=== PATIENT | male | born 1965 | race Caucasian/White ===

== ENCOUNTER 2023-08-22 11:53 | Outpatient (RCR) | payer BC, SELFPAY | END 2023-08-22 23:59 | disposition home or self-care (01) | LOC: ROT 11:53 | PROVIDERS: ATTENDING PHYSICIAN Physical Medicine & Rehabilitation; FAMILY PHYSICIAN Family Medicine | DX: G93.6 Cerebral edema (principal); Z73.6 Limitation of activities due to disability; C71.9 Malignant neoplasm of brain, unspecified; G81.92 Hemiplegia, unspecified affecting left dominant side | CPT/HCPCS: 97110; 97112; 97116; 97140; 97530; 97535 ==

== ENCOUNTER 2023-09-06 09:56 | Outpatient (RCR) | payer BC, SELFPAY | END 2023-09-06 23:59 | disposition home or self-care (01) | LOC: ROT 09:56 | PROVIDERS: ATTENDING PHYSICIAN Physical Medicine & Rehabilitation; FAMILY PHYSICIAN Family Medicine | DX: G93.6 Cerebral edema (principal); C71.9 Malignant neoplasm of brain, unspecified; G81.92 Hemiplegia, unspecified affecting left dominant side; Z73.6 Limitation of activities due to disability | CPT/HCPCS: 97110; 97116; 97140; 97530 ==

== ENCOUNTER → 2023-09-30 08:35 | Outpatient (REF) | payer BC, SELFPAY ==
[2023-09-30 09:31] LABS: % Basophils 0.4 % (0-2); % Eosinophils 0.2 % (0-6); % Immature Granulocytes 0.4 % (0-0.5); % Lymphocytes 10.7 % (20.5-51.1); % Monocytes 6.9 % (1.7-9.3); % Neutrophils 81.4 % (42.2-75.2); Absolute Lymphocytes 0.6 10^3/uL (1.2-3.4); Absolute Monocytes 0.4 10^3/uL (0.1-0.6); Absolute Neutrophils 4.3 10^3/uL (1.4-6.5); Hematocrit 38.2 % (39.0-52.0); Hemoglobin 13.8 g/dL (13.0-18.0); Mean Corp Hgb Conc. 36.1 g/dL (33.0-37.0); Mean Corpuscular Hgb 36.7 pg (27.0-31.0); Mean Corpuscular Volume 101.6 fL (80.0-94.0); Nucleated Red Blood Cells % 0 % (-); Red Blood Cell Count 3.76 10^6/uL (4.70-6.10); Red Cell Dist. Width 13.2 % (11.5-14.5); White Blood Cell Count 5.2 10^3/uL (4.8-10.8)
[2023-09-30 09:59] LABS: ALT (SGPT) 75 U/L (0-50); AST (SGOT) 76 U/L (17-59); Albumin 4.4 g/dl (3.5-5.0); Alkaline Phosphatase 39 U/L (38-126); Blood Urea Nitrogen 24 mg/dl (9-20); Calcium 10.2 mg/dl (8.4-10.2); Carbon Dioxide 34 mmol/L (22-30); Chloride 91 mmol/L (98-107); Glucose 124 mg/dl (70-99); Potassium 2.8 mmol/L (3.5-5.1); Sodium 136 mmol/L (135-145); Total Bilirubin 1.4 mg/dl (0.2-1.3); Total Protein 7.6 g/dl (6.3-8.2); eGFR > 60.00
[2023-09-30 11:00] LABS: Mean Platelet Volume 9.1 fL (7.4-10.4); Platelet Count 92 10^3/uL (130-400)
== END ==
LOC: REG 08:35
PROVIDERS: ATTENDING PHYSICIAN Internal Medicine Hematology & Oncology; FAMILY PHYSICIAN Physician Assistant Medical
DX: C71.9 Malignant neoplasm of brain, unspecified (principal)
CPT/HCPCS: 36415; 80053; 85025

== ENCOUNTER 2023-10-07 00:15 | Inpatient (IN) | payer BC, SELFPAY ==
[2023-10-06 20:23] VITALS: BP 135/92; BMI 28.8
[2023-10-06 20:26] VITALS: BP 135/92
[2023-10-06 20:38] LABS: % Basophils 0.4 % (0-2); % Immature Granulocytes 0.4 % (0-0.5); % Lymphocytes 27.5 % (20.5-51.1); % Monocytes 17.5 % (1.7-9.3); % Neutrophils 54.2 % (42.2-75.2); Absolute Lymphocytes 0.7 10^3/uL (1.2-3.4); Absolute Monocytes 0.4 10^3/uL (0.1-0.6); Absolute Neutrophils 1.4 10^3/uL (1.4-6.5); Hematocrit 32.1 % (39.0-52.0); Hemoglobin 11.9 g/dL (13.0-18.0); Mean Corp Hgb Conc. 37.1 g/dL (33.0-37.0); Mean Corpuscular Hgb 36.8 pg (27.0-31.0); Mean Corpuscular Volume 99.4 fL (80.0-94.0); Mean Platelet Volume 9.4 fL (7.4-10.4); Nucleated Red Blood Cells % 0 % (-); Platelet Count 86 10^3/uL (130-400); Red Blood Cell Count 3.23 10^6/uL (4.70-6.10); Red Cell Dist. Width 12.7 % (11.5-14.5); White Blood Cell Count 2.5 10^3/uL (4.8-10.8)
[2023-10-06 20:57] LABS: Alcohol None Detected
[2023-10-06 20:58] LABS: ALT (SGPT) 147 U/L (0-50); AST (SGOT) 95 U/L (17-59); Alkaline Phosphatase 45 U/L (38-126); Blood Urea Nitrogen 7 mg/dl (9-20); Calcium 8.9 mg/dl (8.4-10.2); Carbon Dioxide 21 mmol/L (22-30); Chloride 103 mmol/L (98-107); Estimated Creatinine Clearance 95 ml/min; Glucose 94 mg/dl (70-99); Potassium 3.7 mmol/L (3.5-5.1); Sodium 134 mmol/L (135-145); Total Bilirubin 0.9 mg/dl (0.2-1.3); Total Protein 6.5 g/dl (6.3-8.2); eGFR > 60.00
[2023-10-06] MEDS: ATIVAN 1 MG IV (21:01)
[2023-10-06 21:03] VITALS: BP 117/92
[2023-10-06 22:00] VITALS: BP 131/82
--- NOTE | 2023-10-06 22:30 | ED.GENMED ---
History of Present Illness
General
Chief Complaint: Seizure
Source: patient and ambulance crew
Exam Limitations: none
Time Seen by Provider: 10/06/23 20:38
Travel History
Have you had any contact with someone who has COVID-19?: No
Do you have any symptoms of coronavirus? Fever > 100 degrees, chills, cough, shortness of breath, sore throat, loss of taste or smell, muscle aches, or headache?: No
History of Present Illness
History of Present Illness:
this is a 57yo male with a hx of brain tumor who presents with seizure activity to the [facility]. he states that he has been also more fatigued and weak. he is on keppra and vimpat. he has had radiation and chemo. he states he had an MR of the brain about
a week ago that he was told showed no significant change in his mass. No fevers. No shortness of breath.
Past History
Past History
ED Past Medical History: Cancer (Brain) and HTN
ED Past Surgical History: Brain
Social History
Tobacco: Non-smoker
Alcohol: Daily
Drug: None
Personal:
Living: with family
Family History
Family History: Other (reviewed and noncontributory)
Phy Exam
Physical Exam
Physical Exam:
CONSTITUTIONAL Patient alert and oriented to person, place and time. Well-appearing. Vital signs reviewed.
HEAD atraumatic, normocephalic.
EYES eyelids normal to inspection, Pupils equally round and reactive to light, Extraocular muscles intact, Conjunctiva normal, Sclera normal.
NECK normal range of motion, Trachea midline, no jugular venous distention.
RESPIRATORY CHEST No respiratory distress noted, Chest expansion equal, Bilateral breath sounds clear.
CARDIOVASCULAR regular rate and rhythm, Heart sounds normal.
ABDOMEN abdomen nontender, Bowel sounds normal. No distention.
BACK normal inspection, no obvious deformities
UPPER EXTREMITY no cyanosis, no edema.
LOWER EXTREMITY no cyanosis, no edema.
NEURO Speech normal, Arnold coma scale 15, Memory normal, Cranial Nerves intact to screening exam. Left upper extremity and left lower extremity weakness. During exam it was noted that he had a focal seizure of the left upper extremity.
SKIN skin warm, dry, and normal in color.
PSYCHIATRIC patient oriented to person place and time, Normal affect.
Course
Orders/Labs/Results
Orders:
Orders
10/06/23 20:31
Alcohol Urgent
CMP [Comprehensive Metabolic Panel] Urgent
Complete Blood Count/With Diff Urgent
10/06/23 20:58
CT Head W/o Iv Contrast Stat
Comment:
Reason For Exam: seizure, h/o brain tumor and resection
Lorazepam [Ativan] 1 mg IV NOW STA
10/07/23 00:14
Lacosamide [Vimpat] 200 mg PO NOW STA
Levetiracetam [Keppra] 1,500 mg PO NOW STA
Abnormal Lab Results
10/06/23
20:31
WBC 2.5 L 10^3/uL
(4.8-10.8)
RBC 3.23 L 10^6/uL
(4.70-6.10)
Hgb 11.9 L g/dL
(13.0-18.0)
Hct 32.1 L %
(39.0-52.0)
MCV 99.4 H fL
(80.0-94.0)
MCH 36.8 H pg
(27.0-31.0)
MCHC 37.1 H g/dL
(33.0-37.0)
Plt Count 86 L 10^3/uL
(130-400)
Absolute Lymphs (auto) 0.7 L 10^3/uL
(1.2-3.4)
Monocytes % 17.5 H %
(1.7-9.3)
Sodium 134 L mmol/L
(135-145)
Carbon Dioxide 21 L mmol/L
(22-30)
BUN 7 L mg/dl
(9-20)
AST 95 H U/L
(17-59)
ALT 147 H U/L
(0-50)
10/06/23 20:31
10/06/23 20:31
Vital Signs
Initial and Last Documented VS:
Initial Vital Signs
Temp Pulse Resp BP Pulse Ox
98.4 F 108 16 135/92 94
10/06/23 20:23 10/06/23 20:23 10/06/23 20:23 10/06/23 20:23 10/06/23 20:23
Last Documented Vital Signs
Temp Pulse Resp BP Pulse Ox
97.7 F 72 16 133/88 95
10/07/23 01:32 10/07/23 01:25 10/07/23 01:00 10/07/23 01:00 10/07/23 01:00
MDM/Problems Addressed
MDM/Problems Addressed:
Focal seizures, brain tumor
*Radiology
Radiology exam reviewed: radiology read reviewed
*Pulse Oximetry
Patient hypoxic: no
*Supervisor Yard Interpretation
Rate: normal
Interpretation: normal
Rhythm: sinus
*Critical Care Note
Total Time (30-74mins, 75-104mins- exclusive of procedures): 30 minutes
Data Reviewed
Review of Other/Old Records Reveals: Progress Notes (Prior progress notes from 06/23)
Source: patient
Prescriptions/Medications Considered But Not Given:
Considered additional Keppra but hold off and will discuss with neurology
Patient Management
Discussion with other providers: Lead Technologist [employer] (oncology at [facility])
Escalation/DeEscalation of care consider admission/obs:
57-year-old male with a history of brain tumor presents with focal seizures. Now stable after IV Ativan. Also does have a history of alcoholism. Patient in the past has been intimate related seizures. Patient admits he has been progressively
more weak. CT shows concern for growth of tumor. Case was discussed with oncology at [facility]. He was accepted by Dr. Rhodes. However, no beds available. In light of his history, admit and monitor closely. [employer] [facility]
[employer] would like updates if his seizures were to progress
ED Attending Note
-
Portions of this chart may have been created with voice recognition software.� Occasional wrong word or��sound alike� substitutions may have occurred due to the inherent limitations of voice recognition software.
Discharge Plan
Departure
Patient Disposition: Admit
Date of Disposition: 10/06/23
Time of Disposition: 22:57
Admit to: Telemetry
Presentation/result/management discussed w/ accepting MD/DO: Hospitalist
Discharge Problem:
Focal seizure, Brain mass
Interventions
Interventions:
*Risk Screen - Suicide Last Done: 10/07/23 01:28
*General Assessment Last Done: 10/06/23 20:23
*Neglect/Abuse Screening Last Done: 10/07/23 01:26
ED- Fall Risk Assessment Last Done: 10/07/23 01:26
*ED COVID-19 Vaccine History Last Done: 10/07/23 01:28
*Nursing Disposition Last Done: 10/07/23 01:26
ED- Cardiac Assessment Last Done: 10/06/23 20:44
ED- Neurological Assessment Last Done: 10/06/23 20:44
ED- Pulmonary Assessment Last Done: 10/06/23 20:44
Discharge Date and Time
Discharge Date/Time: 10/07/23 01:26
[2023-10-07] VITALS (13 sets, daily range): BP systolic 124–162; BP diastolic 87–108; BMI 27.9; BMI 28.4
[2023-10-07] MEDS: VIMPAT 200 MG PO ×3 (00:25→19:47)
[2023-10-07] MEDS: KEPPRA 1500 MG PO ×3 (00:28→19:47)
--- NOTE | 2023-10-07 00:28 | HPS.HSE ---
Family Physician
-
Family Physician: Shanice Motley
Chief Complaint
-
Seizure
History of Present Illness
Patient is a 57y M with PMH significant for seizure disorder and astrocytoma who presents to ED complaining of tremulous activity of the L arm and leg this evening. Patient states that symptoms started while he was sitting and watching
television. He had yet to take his evening AEDs (and has still not taken them). He noted shaking of the L arm > leg and activated his LifeAlert. He was brought to the ED for further evaluation.
Patient was given Ativan IV in the ED and his symptoms resolved.
Patient states that the still has some residual 'heaviness' in the arm and leg. He has baseline L weakness following his initial brain surgery / tumor excision - but current symptoms are more severe.
He notes that the L sided tremulousness and weakness are consistent with his prior seizure activity.
His last seizure was in 05/2023.
He is followed at [facility] by Dr. Cramer for his astrocytoma.
Medical History
Past Medical History
Past Medical History: Reports Other
Additional Past Medical History:
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
Seizure Disorder
Hypertension
Depression
Past Surgical History: Reports Other
Additional Past Surgical History:
Right Frontal Craniotomy / Tumor Excision (08/2021)
Inguinal Herniorrhaphies
Social History
Tobacco: Non-smoker
Alcohol: Chronic Alcoholic (History of alcohol use in excess. He states that his last drink was about one week ago.)
Drug: None
Family History
Family History: Not pertinent
Allergies / Home Medications
Allergies reflects when Allergies were last updated in [facility].
Home Medications with original date entered in [facility]
Allergy/Medication List:
Allergies
Allergy/AdvReac Type Severity Reaction Status Date / Time
oxycodone [From Percocet] Allergy Itching/MATT Verified 08/02/23 12:28
SEA
Home Medications
escitalopram oxalate 10 mg tablet 10 mg PO DAILY Mental Health/Anxiety 11/04/16
hydrochlorothiazide 25 mg tablet 25 mg PO DAILY Blood pressure 11/04/16
yjaealt-vqwijqdvdmqvd-ftxyqcud 250 mg-250 mg-65 mg tablet (Excedrin Migraine) 2 tab PO Q6H PRN headache 05/30/23
cabergoline 0.5 mg tablet 0.25 mg PO TUFR Endocrine disorder 05/30/23
lomustine 100 mg capsule (Gleostine) 100 mg PO Q3W Neurological Condition 05/30/23
ondansetron HCl 4 mg tablet 4 mg PO Q8HPRN PRN nausea/vomiting 05/30/23
pantoprazole 40 mg tablet,delayed release 40 mg PO DAILY Gastrointestinal Issue 05/30/23
polyethylene glycol 3350 17 gram oral powder packet (Miralax) 17 g PO DAILY PRN constipation 05/30/23
procarbazine 50 mg capsule (Matulane) 50 mg PO . DIRECTED Neurological Condition 05/30/23
amlodipine 5 mg tablet 10 mg PO QPM #90 tabs 06/15/23
dexamethasone 2 mg tablet 2 mg PO DAILY Anti-Inflammatory #30 tabs 06/15/23
lacosamide 200 mg tablet 200 mg PO BID #60 tabs 06/15/23
potassium chloride 20 mEq oral packet (Klor-Con) 40 meq PO DAILY #90 ea 06/15/23
acetaminophen 325 mg tablet 650 mg PO Q6HPRN PRN mild pain 10/06/23
levetiracetam 750 mg tablet 1,500 mg PO BID 10/06/23
lisinopril 40 mg tablet 60 mg PO DAILY 10/06/23
Review of Systems
-
History Source: Patient
A 12 point ROS was completed and negative except as noted: Yes
Constitutional: Reports Fatigue; Denies Fever or Chills
Respiratory: Denies Cough or Trouble Breathing
Cardiac: Denies Chest Pain or Palpitations
Abdomen/GI: Denies Abdominal Pain, Nausea, Vomiting or Diarrhea
: Denies Dysuria or Frequency
Musculoskeletal: Denies Joint Pain or Edema
Neurological: Reports Weakness and Other (Tremulousness); Denies Dizzy or Headache
Psych: Denies Depression or Anxiety
Physical Exam
Vital Signs
Vital Signs
Temp Pulse Resp BP Pulse Ox
98.4 F 75 17 131/82 96
10/06/23 20:23 10/06/23 23:45 10/06/23 23:45 10/06/23 22:00 10/06/23 22:15
Physical Exam
General: Other (57y M in no acute distress.)
HEENT: Moist mucous membranes and PERRLA
Respiratory: Clear; No Wheezes, Rales or Rhonchi
Cardiac: S1/S2 and Regular Rhythm; No Murmur
GI: Soft, Non Tender, Non Distended and Normal Bowel Sounds
Musculoskeletal: No Clubbing, No Cyanosis and No Edema
Neuro: AO x 3 and Other (L sided weakness compared to the R (chronic). No active seizure activity.)
Psych: No Agitated or Anxious
Laboratory Results
-
10/06/23 20:31
10/06/23 20:31
Laboratory Results
Total Bilirubin 0.9 mg/dl (0.2-1.3) 10/06/23 20:31
AST 95 U/L (17-59) H 10/06/23 20:31
ALT 147 U/L (0-50) H 10/06/23 20:31
Alkaline Phosphatase 45 U/L (38-126) 10/06/23 20:31
Impression/Plan
-
A/P: Patient is a 57y M with PMH significant for R frontal astrocytoma and seizure disorder who presents to ED with recurrent seizure activity.
Seizure Activity
- Admit for further evaluation and treatment.
- Symptoms improved with IV Ativan in the ED.
- Will give usual nighttime doses of Keppra / Vimpat now and continue BID.
- Monitor for any further seizure activity and treat as needed.
- Neurology evaluation for additional recommendations.
- Patient has been accepted in transfer to [facility]; however, there is no current be availability.
Right Frontal Astrocytoma
- CT done in the ED this evening suggests progression (compared to prior imaging here 05/2023).
- Patient is on current therapy including procarbazine, lomustine and dexamethasone.
- Will continue dexamethasone for now.
- Pending transfer to [facility] once bed is available.
- Follow for changes in neurologic exam, recurrent seizures, etc.
Benign Hypertension
- Stable. Continue outpatient medications with holding parameters.
DVT Prophylaxis: SCDs
Code Status: Full
[2023-10-07 04:27] LABS: Hematocrit 30.5 % (39.0-52.0); Hemoglobin 11.1 g/dL (13.0-18.0); Mean Corp Hgb Conc. 36.4 g/dL (33.0-37.0); Mean Corpuscular Hgb 37.1 pg (27.0-31.0); Mean Platelet Volume 9.3 fL (7.4-10.4); Platelet Count 71 10^3/uL (130-400); Red Blood Cell Count 2.99 10^6/uL (4.70-6.10); Red Cell Dist. Width 12.5 % (11.5-14.5)
[2023-10-07 04:33] LABS: White Blood Cell Count 2.2 10^3/uL (4.8-10.8)
[2023-10-07 04:51] LABS: Blood Urea Nitrogen 7 mg/dl (9-20); Calcium 8.7 mg/dl (8.4-10.2); Carbon Dioxide 28 mmol/L (22-30); Chloride 104 mmol/L (98-107); Estimated Creatinine Clearance 106 ml/min; Glucose 94 mg/dl (70-99); Potassium 3.3 mmol/L (3.5-5.1); Sodium 135 mmol/L (135-145); eGFR > 60.00
[2023-10-07] MEDS: PROTONIX 40 MG PO (07:57)
[2023-10-07] MEDS: DECADRON 2 MG PO (07:58)
[2023-10-07] MEDS: KLOR-CON 40 MEQ PO (07:58)
[2023-10-07] MEDS: ZESTRIL 40 MG PO (07:58)
[2023-10-07] MEDS: LEXAPRO 10 MG PO (07:58)
--- NOTE | 2023-10-07 08:07 | W.PN.HOSP.TC ---
Addendum entered and electronically signed by Bunny Camargo DO 10/07/23 15:18:
Nurse informed me that the patient spoke to his physician at the [facility], Dr. Cramer, and he recommended that there is no need to transfer the patient down to [facility].
I spoke with neurology, Dr. Herron, he recommends monitoring overnight and likely discharge tomorrow if stable.
Trigger for seizure was likely ongoing alcohol use and missed doses of dexamethasone at home.
Original Note:
Today's Communication/Plan
-
Resume diet
Await transfer to [facility]
Assessment / Plan
Assessment / Plan
Gen-AAOx3, NAD
HEENT-NC, AT, anicteric, clear oral mm
Neck-supple
CV-reg, no M, +S1/S2
Lungs-clear B/L
Abd-soft, NT, ND
Ext-no edema
Musculoskeletal-no cyanosis, clubbing
Skin-warm and dry
Neuro-grossly non-focal
Psych-calm, cooperative
Seizure disorder -recurrent seizure yesterday. No further seizures. Denies medication noncompliance. Does admit to drinking alcohol and states his last drink was 5 days ago. Spoke with patient about abstaining from all further alcohol use as it
will lower his seizure threshold.
Continue antiepileptics.
Hypokalemia -will replete. Check magnesium.
Hyponatremia -resolved. Suggest stopping hydrochlorothiazide.
Elevated transaminases -ALT is higher than AST. Rule out adverse drug reaction versus other causes.
Pancytopenia -likely due to chemotherapy for astrocytoma. Monitor for now.
Right frontal astrocytoma -CT head concerning for progression. Perhaps this is causing recurrence of seizures. Plan to transfer to [facility] when bed available. Patient signed consent form.
Essential hypertension -stable.
Full code
Anticipated Discharge: Within 24 hours
Subjective/Interval History
-
Date of Service: October 07, 2023
Patient seen and examined. No complaints this morning. No further seizures.
Objective Data
-
Labs:
Laboratory Results
10/06/23 10/07/23
20:31 04:16
WBC 2.5 L 2.2 L*
Hgb 11.9 L 11.1 L
Hct 32.1 L 30.5 L
Plt Count 86 L 71 L
Sodium 134 L 135
Potassium 3.7 3.3 L
Chloride 103 104
Carbon Dioxide 21 L 28
BUN 7 L 7 L
Creatinine 0.9 0.8
Glucose 94 94
Calcium 8.9 8.7
Total Bilirubin 0.9
AST 95 H
ALT 147 H
Alkaline Phosphatase 45
Vital Signs:
Vital Signs
Temp Pulse Resp BP Pulse Ox
97.6 F 100 13 133/96 96
10/07/23 07:57 10/07/23 07:58 10/07/23 06:00 10/07/23 07:58 10/07/23 06:00
Review of Systems
-
History Source: Patient
All other systems: Reviewed and negative
--- NOTE | 2023-10-07 08:09 | CON.NEURO4 ---
Addendum entered and electronically signed by Bryce Herron MD 10/07/23 15:02:
I saw and evaluated the patient I reviewed the note by Nicole Romero agree with the findings:
57-year-old male with a known history of apical's, right-sided astrocytoma with radiation, chemotherapy, surgical resection presenting to the hospital with episode of seizure. I had seen him previously in May 2023 with status epilepticus which
he likely made a good recovery from. He presented with typical motor seizure of the left arm and leg. He has been compliant with levetiracetam as well as lacosamide. He is clear in saying that he is about 1 pint of vodka a day and his last dose
was on this past Tuesday, he had also ran out of dexamethasone recently in the past couple of days.
Neurologic examination shows normal mental status, mild weakness 4/5 left arm and left leg.
CT head with findings consistent with previous right-sided brain astrocytoma no hemorrhage no midline shift
Assessment: Most likely breakthrough seizure in the setting of alcohol abuse and sudden cessation of alcohol as well as stopping dexamethasone recently. 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
Recommendations
-Discussed that while it is understandable that alcohol can be used as a coping mechanism with all of his health issues he really has to try and cut down and understand that alcohol in general and certainly stopping alcohol use suddenly can lead to
seizures
-Resume dexamethasone at his home dose 2 mg daily
-I do not feel there is a role for changing his baseline antiseizure medications, would not be helpful to change the dose as long as he is having alcohol abuse
-Reasonable for transfer to [facility] given the CT head findings or thoughts on additional therapies focused on the brain neoplasm, but I do not think it would be necessary from a point of view of seizure control
-Continue home doses of lacosamide and levetiracetam
-Ambulation physical therapy
Original Note:
Consultation - Neurology 4
-
CONSULTING PHYSICIAN: Rebekah Herron MD
REFERRING PHYSICIAN: Hospitalists/Dr. Strange
DICTATED BY: JOHANA Garay
DATE/TIME OF REQUEST: 10/07/23
DATE/TIME OF CONSULTATION: 10/07/23
Reason for Consultation: Seizure
History of Present Illness:
This is a 57-year-old right-handed male who has presented to the hospital with report of a seizure. Patient was previously evaluated by our Neurology service for status epilepticus in May 2023. He has yet to follow-up with our office due to
feeling too unwell from chemotherapy.
From previous evaluation by Dr. Herron on 05/30/23:
'Patient is 57 year old man with history of right sided brain astrocytoma, epilepsy, hypertension, pulmonary embolism, alcohol abuse presenting to hospital with status epilepticus.� He was picked up from home by EMS, had active generalized tonic
clonic activity in route and received 5 mg Midazolam in route, still with active left sided convulsive seizure activity while in ER, by time of my evaluation had been having seizure for approximately 45 minutes.� Unknown further history at this time
regarding antiseizure medication compliance or alcohol use, is on Lacosamide 100 mg BID and Levetiracetam 1000 mg BID.� Was discharged from [facility] 01/21 after having hematochezia.� He was discharged on Apixaban from that hospitalization.'
Last night (10/06/23) while sitting watching TV patient reports that his left hand started shaking, followed by his entire left arm, and then his left leg. He felt like he was hyperventilating and called 911. His violent left-sided shaking lasted for
15 minutes before EMS arrived and administered lorazepam, which helped diminish his shaking. On arrival in the ER he received additional lorazepam and his shaking subsided. He thinks the entire event may have lasted 1.[address] head was obtained
in the ER and is suggestive of increased edema in his right frontal/parietal lobe. He denies losing consciousness, biting his tongue, or any incontinence of bladder/bowel. Today, he reports left arm and leg weakness and fatigue but denies any
further body shaking. For the past week he reports feeling extreme fatigue, dull headaches, and chills; almost as if he was on chemo but his treatment was held last week due to hypokalemia. He has been sleeping well. He typically drinks 1 pint of
vodka daily and reports the last time he had a drink was 4 days ago on 10/02/23 due to being on house arrest/running out of alcohol. He reports having MRI brain imaging in August 2023 and again 10 days ago, and notes that his oncologist said things
appeared stable. He is supposed to be taking Decadron 2mg daily but he had to switch pharmacies and ran out of his medication about 6 days ago and hasn't been taking it. He denies missing any doses of his Keppra or Vimpat. He denies any dizziness,
vision changes, speech/swallow difficulty, nausea, numbness, chest pain, palpitations, and shortness of breath.
Past Medical History: Right-sided astrocytoma s/p crani for tumor rxn/radiation/chemo (followed by Dr. Cramer at [facility]), seizure disorder, alcohol abuse, HTN, HLD, PE, GI bleed
Surgical History: Right parietal craniotomy for astrocytoma
Family History: Reviewed and noncontributory.
Social History: Drinks 1 pint of vodka daily. Denies tobacco and illicit drug use. Lives alone, currently on house arrest for 30 days for a DUI.
Allergies: Oxycodone from [facility].
Home Medications: See below.
Review of Symptoms:
Patient denies any fever, headache, chest pain, shortness of breath, GI or symptoms.
�Per the HPI.�All systems are reviewed negative except above.
Physical Exam:
The patient is afebrile, abdomen is nondistended, breathing is unlabored, skin is warm and dry, no edema.
Neurologic Examination:
The patient is awake, alert and oriented x 3. He is able to follow commands and answer questions appropriately. There is no aphasia or dysarthria. On cranial nerve assessment, pupils are 3 mm bilateral, round and reactive to light and
accommodation. Visual alvarez are full. Extraocular movements are intact. Facial sensations are intact and bilaterally symmetrical, there is no facial asymmetry. Hearing is intact bilaterally to normal conversation volume. Tongue palate and uvula
are midline. Sternocleidomastoid strengths are full bilaterally. Motor strengths are 5/5 right upper, 4/5 left upper, 5/5 right lower, and 2/5 left lower extremities on medical research Pauma scale. There is no drift or involuntary movement noted.
Deep tendon reflexes are 3+ bilateral upper and lower extremities and Babinski is absent bilaterally. 3 beats of clonus bilaterally. Sensations of touch, temperature and vibration are intact and bilaterally symmetrical. Coordination is intact by
finger to nose bilaterally.
Lab Results: See below.
Neuro Imaging:
1. CT Head 10/07/23: �Increased size of the area of decreased density in the white matter of the posterior right frontal lobe and anterior right parietal lobe, with new foci of increased density within it suggestive of calcification and neoplastic
recurrence. No midline shift.
Differentials for the patient's presentation include:
1. Breakthrough seizure with left-sided Valerio's Paralysis, likely due to alcohol withdraw.
2. CT head imaging concerning for increased right frontoparietal edema/neoplasm recurrence.
3. Cessation of Decadron 6 days ago due to running out of medication.
Patient has the following risk factors for their symptoms: Astrocytoma, alcohol abuse, hx seizure
Recommendations:
-Continue home Keppra 1500mg BID and Vimpat 200mg BID, would not make any adjustments at this time.
-Continue home Decadron 2mg PO daily.
-MSAS protocol.
-Patient in for transfer to [facility].
-Do not see a role for further neurological imaging at this time.
-PT/OT evaluations.
-DVT prophylaxis.
-Discussed increased risk of seizure with alcohol usage/cessation.
-No driving until 6m seizure free, this seizure is required to be reported to [facility] by [place] state law.
-Contact our Neurology service with any questions/concerns. Patient needs outpatient follow-up with Neurology in 4 weeks, may see the MANUGRAPHER or one of the physicians.
Discussed patient care with: Dr. Herron, the patient
Vital Signs and Labs
-
Vital Signs and Labs:
Vital Signs
Temp Pulse Resp BP Pulse Ox
97.5 F 100 13 133/96 96
10/07/23 11:18 10/07/23 07:58 10/07/23 06:00 10/07/23 07:58 10/07/23 06:00
Lab Results
10/07/23 04:16
10/07/23 04:16
Sodium 135 mmol/L (135-145) 10/07/23 04:16
Potassium 3.3 mmol/L (3.5-5.1) L 10/07/23 04:16
BUN 7 mg/dl (9-20) L 10/07/23 04:16
Glucose 94 mg/dl (70-99) 10/07/23 04:16
Calcium 8.7 mg/dl (8.4-10.2) 10/07/23 04:16
Medications
-
Active Medications
Generic Name Dose Route Start Last Admin
Trade Name Freq PRN Reason Stop Dose Admin
Acetaminophen 650 mg 10/07/23 01:24
Acetaminophen 325 Mg Tablet PO 11/04/23 01:23
Q6HPRN PRN
mild pain
Amlodipine Besylate 10 mg 10/07/23 18:00
Amlodipine 5 Mg Tablet PO 11/04/23 17:59
QPM ERINN
Dexamethasone 2 mg 10/07/23 08:00 10/07/23 07:58
Dexamethasone 2 Mg Tablet PO 11/04/23 07:59 2 mg
DAILY ERINN Administration
Escitalopram Oxalate 10 mg 10/07/23 08:00 10/07/23 07:58
Escitalopram 10 Mg Tablet PO 11/04/23 07:59 10 mg
DAILY ERINN Administration
Lacosamide 200 mg 10/07/23 08:00 10/07/23 07:58
Lacosamide (Vimpat) 200 Mg Tablet PO 11/04/23 07:59 200 mg
BID ERINN Administration
Levetiracetam 1,500 mg 10/07/23 08:00 10/07/23 07:58
Levetiracetam 500 Mg Regular Release Tablet PO 11/04/23 07:59 1,500 mg
BID ERINN Administration
Lisinopril 40 mg 10/07/23 08:00 10/07/23 07:58
Lisinopril 20 Mg Tablet PO 11/04/23 07:59 40 mg
DAILY ERINN Administration
Lorazepam 1 mg 10/07/23 01:24
Lorazepam 2 Mg/Ml Vial IV 11/04/23 01:23
Q1HPRN PRN
Seizure activity
Cabergoline 0.5 Mg 0 mg 10/07/23 01:24
Tablet Po Tuesday PO 11/04/23 01:23
And Tuesday TU ERINN
Pantoprazole Sodium 40 mg 10/07/23 08:00 10/07/23 07:57
Pantoprazole 40 Mg Delayed Release Tablet PO 11/04/23 07:59 40 mg
DAILY ERINN Administration
Polyethylene Glycol 17 grams 10/07/23 09:00 10/07/23 10:09
Polyethylene Glycol Powder 17 Grams Packet PO 11/04/23 08:59 17 grams
DAILY ERINN Administration
Potassium Chloride 40 meq 10/07/23 08:00 10/07/23 07:58
Potassium Chloride 20 Meq Powder Packet PO 11/04/23 07:59 40 meq
DAILY ERINN Administration
Sodium Chloride 0 flush 10/07/23 02:00
Sodium Chloride 0.9% (Flush) Syringe IV 11/04/23 01:59
PER PROTOCOL ERINN
Home Medications
Medication Instructions Recorded
escitalopram oxalate 10 mg tablet 10 mg PO DAILY Mental 11/04/16
Health/Anxiety
hydrochlorothiazide 25 mg tablet 25 mg PO DAILY Blood pressure 11/04/16
wtaugcr-peeojdtziywzs-zwdzmeag 250 2 tab PO Q6H PRN headache 05/30/23
mg-250 mg-65 mg tablet (Excedrin
Migraine)
cabergoline 0.5 mg tablet 0.25 mg PO TUFR Endocrine disorder 05/30/23
lomustine 100 mg capsule 100 mg PO Q3W Neurological 05/30/23
(Gleostine) Condition
ondansetron HCl 4 mg tablet 4 mg PO Q8HPRN PRN nausea/vomiting 05/30/23
pantoprazole 40 mg tablet,delayed 40 mg PO DAILY Gastrointestinal 05/30/23
release Issue
polyethylene glycol 3350 17 gram 17 g PO DAILY PRN constipation 05/30/23
oral powder packet (Miralax)
procarbazine 50 mg capsule 50 mg PO . DIRECTED Neurological 05/30/23
(Matulane) Condition
amlodipine 5 mg tablet 10 mg PO QPM #90 tabs 06/15/23
dexamethasone 2 mg tablet 2 mg PO DAILY Anti-Inflammatory 06/15/23
#30 tabs
lacosamide 200 mg tablet 200 mg PO BID #60 tabs 06/15/23
potassium chloride 20 mEq oral 40 meq PO DAILY #90 ea 06/15/23
packet (Klor-Con)
acetaminophen 325 mg tablet 650 mg PO Q6HPRN PRN mild pain 10/06/23
levetiracetam 750 mg tablet 1,500 mg PO BID 10/06/23
lisinopril 40 mg tablet 60 mg PO DAILY 10/06/23
[2023-10-07 08:20] LABS: Magnesium 2.2 mg/dl (1.6-2.3)
--- NOTE | 2023-10-07 10:00 | PTCARENOTE ---
Patient AAOx3. Up in chair. VSS. RA. No pain, no seizure activity. Reports he was drinking a pint of vodka/day with last drink on Tuesday. Bed alarm placed for safety. Patient with scattered bruises from recent falls. Patient calling appropriately.
Continuing to closely monitor.
[2023-10-07] MEDS: KCL 270 MEQ IV (10:09)
[2023-10-07] MEDS: MIRALAX 17 GRAMS PO (10:09)
--- NOTE | 2023-10-07 16:15 | CM ---
Addendum entered by Cynthia Rodriguez 10/07/23 16:30:
PT/OT consults ordered.
Case Management will follow up in AM
Home Care preference is VN
Original Note:
Met with patient at bedside; initial assessment completed
Pharmacy verified: [facility] located @ [address] [place] [address]
Patient reports he lives alone in an apartment; elevator access; bath has walk-in shower with seat; has a pole to grab to assist with getting in/out of shower
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
Currently goes to [facility] for outpatient PT; asked Attending to order PT/OT consult for home PT when discharged
SNF/Rehab utilization history: [facility] rehab hospital August 2021; and [facility] @ 06/2022
Transportation: friend will provide ride home
Plan: discharge to home. PT/OT eval pending for home care needs
[2023-10-07] MEDS: NORVASC 10 MG PO (17:29)
[2023-10-08] VITALS (8 sets, daily range): BP systolic 133–154; BP diastolic 73–112; PULSE 79–80
--- NOTE | 2023-10-08 04:17 | PTCARENOTE ---
Pt resting well overnight. AAOx3. Denies pain or discomfort. VSS. Afebrile. SR on CM. POX 95% RA. Neuro checks as documented. Pt has diminished movement on left side LLE > LUE. Using walking to bathroom pt has difficult time picking up left foot
(foot drop) and difficulty keeping left foot next to right foot when walking. Multiple bruises to back in different placed s/p falls. Bed alarm on and working. Rest of assessment as documented. Call bone remains within reach. Will continue to
monitor.
[2023-10-08 06:45] LABS: TSH Reflex To Free T4 0.64 uIU/ml (0.47-4.68)
--- NOTE | 2023-10-08 08:02 | W.PN.HOSP.TC ---
Addendum entered and electronically signed by Bunny Camargo DO 10/08/23 09:36:
Physical therapy recommends home health
Medically stable for discharge
Outpatient follow-up
Original Note:
Today's Communication/Plan
-
Check labs
PT/OT
Possible discharge
Assessment / Plan
Assessment / Plan
Gen-AAOx3, NAD
HEENT-NC, AT, anicteric, clear oral mm
Neck-supple
CV-reg, no M, +S1/S2
Lungs-clear B/L
Abd-soft, NT, ND
Ext-no edema
Musculoskeletal-no cyanosis, clubbing
Skin-warm and dry
Neuro-grossly non-focal
Psych-calm, cooperative
Seizure disorder -suspect seizure trigger was due to alcohol use as well as missed doses of dexamethasone. No further seizures. Spoke with patient about abstaining from all further alcohol use as it will lower his seizure threshold.
Continue antiepileptics. Appreciate neurology input.
Hypokalemia -will replete. Check magnesium. Labs pending for today.
Hyponatremia -resolved. Suggest stopping hydrochlorothiazide.
Elevated transaminases -ALT is higher than AST. Rule out adverse drug reaction versus other causes. Check CMP today.
Pancytopenia -likely due to chemotherapy for astrocytoma. Monitor for now.
Right frontal astrocytoma -CT head concerning for progression. Perhaps this is causing recurrence of seizures. Follow-up with his physicians at [place].
Essential hypertension -stable.
Full code
PT/OT
Dispo - potential discharge later today.
Anticipated Discharge: Today
Subjective/Interval History
-
Date of Service: October 08, 2023
Patient seen and examined. No new complaints. Wants to work with physical therapy today.
Objective Data
-
Labs:
Laboratory Results
10/08/23
07:56
WBC Pending
Hgb Pending
Hct Pending
Plt Count Pending
Sodium Pending
Potassium Pending
Chloride Pending
Carbon Dioxide Pending
BUN Pending
Creatinine Pending
Glucose Pending
Calcium Pending
Total Bilirubin Pending
AST Pending
ALT Pending
Alkaline Phosphatase Pending
Vital Signs:
Vital Signs
Temp Pulse Resp BP Pulse Ox
97.6 F 68 11 154/92 94
10/08/23 03:05 10/08/23 06:00 10/08/23 06:00 10/08/23 06:00 10/07/23 19:15
I&O
10/07/23 10/08/23 10/09/23
06:59 06:59 07:59
Intake Total 400 / 400
Balance 400 / 400
Review of Systems
-
History Source: Patient
All other systems: Reviewed and negative
[2023-10-08] MEDS: MIRALAX 17 GRAMS PO (08:17)
[2023-10-08] MEDS: PROTONIX 40 MG PO (08:17)
[2023-10-08] MEDS: KEPPRA 1500 MG PO (08:17)
[2023-10-08] MEDS: KLOR-CON 40 MEQ PO (08:17)
[2023-10-08] MEDS: ZESTRIL 40 MG PO (08:18)
[2023-10-08] MEDS: LEXAPRO 10 MG PO (08:18)
[2023-10-08] MEDS: DECADRON 2 MG PO (08:20)
[2023-10-08] MEDS: VIMPAT 200 MG PO (08:20)
[2023-10-08 09:05] LABS: % Basophils 0.4 % (0-2); % Eosinophils 0.4 % (0-6); % Immature Granulocytes 0.4 % (0-0.5); % Monocytes 14.2 % (1.7-9.3); % Neutrophils 59.6 % (42.2-75.2); Absolute Lymphocytes 0.6 10^3/uL (1.2-3.4); Absolute Monocytes 0.3 10^3/uL (0.1-0.6); Absolute Neutrophils 1.4 10^3/uL (1.4-6.5); Hematocrit 33.2 % (39.0-52.0); Hemoglobin 12.2 g/dL (13.0-18.0); Mean Corp Hgb Conc. 36.7 g/dL (33.0-37.0); Mean Corpuscular Hgb 37.4 pg (27.0-31.0); Mean Corpuscular Volume 101.8 fL (80.0-94.0); Mean Platelet Volume 9.5 fL (7.4-10.4); Nucleated Red Blood Cells % 0 % (-); Platelet Count 104 10^3/uL (130-400); Red Blood Cell Count 3.26 10^6/uL (4.70-6.10); Red Cell Dist. Width 12.5 % (11.5-14.5)
[2023-10-08 09:29] LABS: ALT (SGPT) 129 U/L (0-50); AST (SGOT) 58 U/L (17-59); Albumin 4.2 g/dl (3.5-5.0); Alkaline Phosphatase 48 U/L (38-126); Blood Urea Nitrogen 10 mg/dl (9-20); Calcium 9.5 mg/dl (8.4-10.2); Carbon Dioxide 29 mmol/L (22-30); Chloride 102 mmol/L (98-107); Estimated Creatinine Clearance 122 ml/min; Glucose 103 mg/dl (70-99); Potassium 3.7 mmol/L (3.5-5.1); Sodium 139 mmol/L (135-145); Total Protein 6.8 g/dl (6.3-8.2); eGFR > 60.00
[2023-10-08 09:31] LABS: White Blood Cell Count 2.3 10^3/uL (4.8-10.8)
--- NOTE | 2023-10-08 09:39 | W.DS.TRANS ---
DC Summary - Strip Polisher
-
Discharge Instructions:
Discharge Diagnosis/Procedures Recurrent seizures, hyponatremia, hypokalemia,
pancytopenia
Diet Regular
Activity With assistance,As tolerated
Driving Restrictions No driving
Bathing Restrictions None
Instructions:
Stand-Alone Forms:
Changes to Home Medications: Yes
Discharge Medications:
DC Medications w/original date entered in [employer]
escitalopram oxalate 10 mg tablet 10 mg PO DAILY Mental Health/Anxiety 11/04/16
zdnrtpg-ttckqpjvyktjj-ugqsfzxm 250 mg-250 mg-65 mg tablet (Excedrin Migraine) 2 tab PO Q6H PRN headache 05/30/23
cabergoline 0.5 mg tablet 0.25 mg PO TUFR Endocrine disorder 05/30/23
lomustine 100 mg capsule (Gleostine) 100 mg PO Q3W Neurological Condition 05/30/23
ondansetron HCl 4 mg tablet 4 mg PO Q8HPRN PRN nausea/vomiting 05/30/23
pantoprazole 40 mg tablet,delayed release 40 mg PO DAILY Gastrointestinal Issue 05/30/23
polyethylene glycol 3350 17 gram oral powder packet (Miralax) 17 g PO DAILY PRN constipation 05/30/23
procarbazine 50 mg capsule (Matulane) 50 mg PO . DIRECTED Neurological Condition 05/30/23
amlodipine 5 mg tablet 10 mg PO QPM #90 tabs 06/15/23
dexamethasone 2 mg tablet 2 mg PO DAILY Anti-Inflammatory #30 tabs 06/15/23
lacosamide 200 mg tablet 200 mg PO BID #60 tabs 06/15/23
potassium chloride 20 mEq oral packet (Klor-Con) 40 meq PO DAILY #90 ea 06/15/23
acetaminophen 325 mg tablet 650 mg PO Q6HPRN PRN mild pain 10/06/23
levetiracetam 750 mg tablet 1,500 mg PO BID 10/06/23
lisinopril 40 mg tablet 60 mg PO DAILY 10/06/23
Home Medication Changes
Stop hydrochlorothiazide
Pending Results: No
--- NOTE | 2023-10-08 11:16 | CM ---
Addendum entered by Danette Can RN 10/08/23 11:53:
Cm spoke with patient who advised bedside RN that he wanted to appeal his discharge. CM advised that patient does not have Medicare and cannot appeal discharge.
Patient stated that he was worried about being home alone tonight, but stated that he has a friend that will stay with him tonight. CM offered emotional support and reassurance that [facility] will be out for additional support.
Patient was satisfied with that and plans for discharge today.
Original Note:
CM reviewed medical records. Plan for discharge today. CM spoke with patient and he is agreeable to [facility]N. Referral sent via [facility].
[facility]
--- NOTE | 2023-10-08 12:41 | PTCARENOTE ---
Pt was rec'd from partner marketing manager, out of bed seated in chair, AOx3 and very pleasant. Pt with no complaints, cleared for discharge today. Worked with PT and OT, will receive [facility]N per CM update. Pt asked if he could stay one more night, however he is
medically clear for discharge -CM confirmed that pt cannot appeal as he does not have medicare. Pt does have a friend who will stay with him overnight, is now in agreement for dc plan. Friend will pick him up around 6 pm. Safe environment
maintained.
== END 2023-10-08 14:57 | disposition home health service (06) | DRG 100 ==
LOC: IMU 00:15
PROVIDERS: ADMITTING PHYSICIAN Hospitalist; ATTENDING PHYSICIAN Hospitalist; EMERGENCY PHYSICIAN Emergency Medicine; FAMILY PHYSICIAN Physician Assistant Medical; OTHER PHYSICIAN Student in an Organized Health Care Education/Training Program
DX: G40.109 Localization-related (focal) (partial) symptomatic epilepsy and epileptic syndromes with simple partial seizures, not intractable, without status epilepticus (principal); D61.810 Antineoplastic chemotherapy induced pancytopenia; Q04.3 Other reduction deformities of brain; C71.1 Malignant neoplasm of frontal lobe; E87.1 Hypo-osmolality and hyponatremia; I10 Essential (primary) hypertension; F10.10 Alcohol abuse, uncomplicated; E87.6 Hypokalemia; G83.84 Todd's paralysis (postepileptic); E78.5 Hyperlipidemia, unspecified; T45.1X5A Adverse effect of antineoplastic and immunosuppressive drugs, initial encounter; R74.01 Elevation of levels of liver transaminase levels; F32.A Depression, unspecified; G40.901 Epilepsy, unspecified, not intractable, with status epilepticus; Z92.21 Personal history of antineoplastic chemotherapy; Z92.3 Personal history of irradiation; Z88.5 Allergy status to narcotic agent; Z60.2 Problems related to living alone; Z65.3 Problems related to other legal circumstances
CPT/HCPCS: 70450; 80048; 80053; 82077; 83735; 84443; 85025; 85027; 96374; 97163; 97167; 99291

== ENCOUNTER → 2023-10-24 10:16 | Outpatient (REF) | payer BC, SELFPAY ==
[2023-10-24 10:56] LABS: % Basophils 0.6 % (0-2); % Eosinophils 0.2 % (0-6); % Immature Granulocytes 0.4 % (0-0.5); % Monocytes 15.8 % (1.7-9.3); Absolute Monocytes 0.8 10^3/uL (0.1-0.6); Absolute Neutrophils 3.1 10^3/uL (1.4-6.5); Hematocrit 37.1 % (39.0-52.0); Mean Corpuscular Hgb 35.9 pg (27.0-31.0); Mean Corpuscular Volume 102.5 fL (80.0-94.0); Mean Platelet Volume 8.7 fL (7.4-10.4); Nucleated Red Blood Cells % 0 % (-); Platelet Count 168 10^3/uL (130-400); Red Blood Cell Count 3.62 10^6/uL (4.70-6.10); Red Cell Dist. Width 11.9 % (11.5-14.5); White Blood Cell Count 4.9 10^3/uL (4.8-10.8)
[2023-10-24 12:24] LABS: ALT (SGPT) 39 U/L (0-50); AST (SGOT) 27 U/L (17-59); Albumin 4.3 g/dl (3.5-5.0); Alkaline Phosphatase 42 U/L (38-126); Blood Urea Nitrogen 13 mg/dl (9-20); Calcium 9.7 mg/dl (8.4-10.2); Carbon Dioxide 31 mmol/L (22-30); Chloride 99 mmol/L (98-107); Glucose 82 mg/dl (70-99); Potassium 3.8 mmol/L (3.5-5.1); Sodium 137 mmol/L (135-145); Total Bilirubin 0.5 mg/dl (0.2-1.3); Total Protein 6.8 g/dl (6.3-8.2); eGFR > 60.00
== END ==
LOC: REG 10:16
PROVIDERS: ATTENDING PHYSICIAN Internal Medicine Hematology & Oncology; FAMILY PHYSICIAN Physician Assistant Medical
DX: C71.9 Malignant neoplasm of brain, unspecified (principal)
CPT/HCPCS: 36415; 80053; 85025

== ENCOUNTER 2024-02-06 08:51 | Inpatient (IN) | payer BC, SELFPAY ==
[2024-02-04] VITALS (16 sets, daily range): BP systolic 113–151; BP diastolic 82–107; PULSE 76; O2SAT 96; BMI 28.8
[2024-02-04] MEDS: TORADOL 30 MG IV (04:55)
--- NOTE | 2024-02-04 05:44 | ED.GENMED ---
History of Present Illness
<Amber Lopez DO - Last Filed: 02/04/24 06:00>
General
Chief Complaint: Musculo-Skeletal Complaint
Source: patient and ambulance crew
Exam Limitations: none
Time Seen by Provider: 02/04/24 04:35
Nursing documentation reviewed up to this point in time: agreed with
History of Present Illness
History of Present Illness:
This is a 58-year-old gentleman who resides at home alone, independently. He has history of brain tumor status postresection, history of seizure disorder, hypertension. Due to brain tumor and resection he has chronic left hemiparesis, wheelchair
bound but able to transfer to wheelchair and bed independently. Currently undergoing outpatient physical therapy.
He suffered a mechanical fall 1 week ago with left upper chest wall bruising that has been resolving.
Tonight he suffered another mechanical fall and was unable to brace himself with his left arm and thus fell directly onto his left shoulder. He arrives via EMS with complaints of moderate pain about his left shoulder.
He denies head injury, denies loss of consciousness, denies neck nor back pain.
Not maintained on anticoagulant.
He does have history of seizure disorder but over the past several months well-controlled with no recent breakthrough seizures.
Past History
<DO Jose Daniel Ureña Last Filed: 02/04/24 06:00>
Past History
ED Past Medical History: Cancer (Brain-right cerebral astrocytoma), HTN and Seizures
ED Past Surgical History: Brain
Social History
Tobacco: Non-smoker
Alcohol: Daily
Drug: None
Personal:
Living: alone
Employment: Employed
Family History
Family History: Other (reviewed and noncontributory)
Phy Exam
<DO Jose Daniel Ureña Last Filed: 02/04/24 06:00>
Physical Exam
Physical Exam:
GENERAL: 58-year-old gentleman appears his stated age, awake and alert, pleasant, appears in no acute distress.
EYE: The head is normocephalic, atraumatic. Pupils equal and reactive. anicteric
NECK: Supple, nontender, full range of motion without difficulty nor pain. No significant adenopathy.
ENT: posterior pharynx is clear, oral mucosa is moist. No rhinorrhea nor epistaxis. No facial tenderness. TMs are clear bilaterally.
CARDIAC: Regular rate and rhythm. no murmur.
LUNGS: Clear breath sounds bilaterally, no acute respiratory distress, no wheezes/rales/rhonchi. There is a subacute/resolving pale purple ecchymotic patch left chest wall. No palpable tenderness nor crepitus.
ABDOMEN: Soft, nondistended, without focal tenderness, no cvat. normoactive BS.
BACK: No midline bony tenderness. No palpable bony pelvic tenderness.
NEUROLOGICAL: Alert and oriented x3, chronic left hemiparesis.
SKIN: Warm and dry, normal color, subacute left chest wall ecchymosis. No rash.
MUSCULOSKELETAL: No C/C/E. peripheral pulses are full and equal b/l. There is tenderness about the left superior shoulder at the distal clavicle. Moderately restricted range of motion of left shoulder related to pain. Clavicle is minimally high
riding. No palpable crepitus. No tenderness to the left upper arm nor elbow.
PSYCH: Normal and appropriate interaction.
Course
<Amber Lopez, DO - Last Filed: 02/04/24 06:00>
Orders/Labs/Results
Orders:
Orders
02/04/24 03:12
CR Shoulder - Left Min 2 View* Urgent
Comment:
Reason For Exam: Fall, pain, deformity
02/04/24 03:36
Clavicle Complete, Left CR [CR Clavicle - Left Complete ] Urgent
Comment:
Reason For Exam: fall, L shoulder pain
02/04/24 04:49
Ketorolac [Toradol] 30 mg IV NOW STA
02/04/24 05:21
Case Management Consult ONCE
Case Management Consult: Discharge Planning
Requested By:: PHYSICIAN
Comment: lives alone. hx brain tumor, left sided weakness, W/C but can transfer independently suffered
fall, distal L clavicle fx. Left arm, arm sling. PT eval this am. May need short SNF stay
vs home care assistance
02/04/24 05:57
Sling Left-Treatment ONCE
02/04/24 07:30
Morphine Sulfate 4 mg IV NOW STA
02/04/24 08:30
Physical Therapy Consult [Pt Eval And Treat] Urgent
Treatment: non-weight bearing of LUE
Activity Level: Ambulate
Vital Signs
Initial and Last Documented VS:
Initial Vital Signs
Temp Pulse Resp BP Pulse Ox
97.8 F 78 18 142/90 96
02/04/24 03:07 02/04/24 03:07 02/04/24 03:07 02/04/24 03:07 02/04/24 03:07
Last Documented Vital Signs
Temp Pulse Resp BP Pulse Ox
97.8 F 76 10 141/98 98
02/04/24 03:07 02/04/24 11:00 02/04/24 11:00 02/04/24 11:00 02/04/24 08:28
<Justa Godfrey DO - Last Filed: 02/04/24 11:20>
Orders/Labs/Results
Orders:
Orders
02/04/24 03:12
CR Shoulder - Left Min 2 View* Urgent
Comment:
Reason For Exam: Fall, pain, deformity
02/04/24 03:36
Clavicle Complete, Left CR [CR Clavicle - Left Complete ] Urgent
Comment:
Reason For Exam: fall, L shoulder pain
02/04/24 04:49
Ketorolac [Toradol] 30 mg IV NOW STA
02/04/24 05:21
Case Management Consult ONCE
Case Management Consult: Discharge Planning
Requested By:: PHYSICIAN
Comment: lives alone. hx brain tumor, left sided weakness, W/C but can transfer independently suffered
fall, distal L clavicle fx. Left arm, arm sling. PT eval this am. May need short SNF stay
vs home care assistance
02/04/24 05:57
Sling Left-Treatment ONCE
02/04/24 07:30
Morphine Sulfate 4 mg IV NOW STA
02/04/24 08:30
Physical Therapy Consult [Pt Eval And Treat] Urgent
Treatment: non-weight bearing of LUE
Activity Level: Ambulate
Vital Signs
Initial and Last Documented VS:
Initial Vital Signs
Temp Pulse Resp BP Pulse Ox
97.8 F 78 18 142/90 96
02/04/24 03:07 02/04/24 03:07 02/04/24 03:07 02/04/24 03:07 02/04/24 03:07
Last Documented Vital Signs
Temp Pulse Resp BP Pulse Ox
97.8 F 76 10 141/98 98
02/04/24 03:07 02/04/24 11:00 02/04/24 11:00 02/04/24 11:00 02/04/24 08:28
<Amber Lopez DO - Last Filed: 02/04/24 06:00>
MDM/Problems Addressed
Differential Diagnosis Includes:
Concern for left AC joint separation, clavicle fracture, humeral head fracture. Nothing on exam to suggest shoulder dislocation.
No evidence of additional traumatic findings, no evidence of head injury. Not maintained on anticoagulants.
X-ray shows comminuted distal clavicle fracture with concern for AC joint widening. There is no fracture of the humeral head, no dislocation.
Will medicate for pain with IV Toradol.
Will plan to place left arm in arm sling.
Although clavicle is not tenting the skin there is an element of comminution and concern for AC joint separation which will require orthopedic follow-up.
Although has chronic hemiparesis of the left arm he does still use his arm to assist with transfers and as he resides at home alone I have concern regarding his ability to successfully transfer independently and safely.
Therefore we will consult physical therapy for bedside mobility evaluation and consult case management as well.
Chronic conditions affecting care: Neurological disorder
<Amber Lopez DO - Last Filed: 02/04/24 06:00>
*Radiology
Radiology exam reviewed: preliminary read by ED provider (X-ray shows comminuted fracture distal left clavicle with widening of the AC joint)
*Pulse Oximetry
Patient hypoxic: no
*Dice Person Interpretation
Rate: normal
Interpretation: normal
Rhythm: sinus
*Critical Care Note
Total Time (30-74mins, 75-104mins- exclusive of procedures): Not Applicable
<Amber Lopez DO - Last Filed: 02/04/24 06:00>
Comment
Comment:
This patient resides at home alone, concern for recurrent falls.
Will consult PT for bedside mobility evaluation as well as consult case management.
<Justa Godfrey DO - Last Filed: 02/04/24 11:20>
Update Note
Update Note:
06:25 -assuming care of patient. 58-year-old male with history of seizure disorder and astrocytoma with chronic left-sided weakness and clonus, presenting after a fall. Patient recently discharged from rehab facility 2 weeks ago, rehabbing from
astrocytoma surgery. He fell prior to arrival, has since suffered a left clavicular fracture. Patient placed in a sling and Toradol administered for pain. No additional acute traumatic injuries. Patient lives at home by himself. For this
reason, pending PT and case management consultation. Vital signs otherwise stable.
07:30 -patient still pending PT and social consultation. He is complaining of pain. Morphine administered.
08:40 -Per physical therapy, patient unable to transfer himself to wheelchair given his new upper extremity injury. Will discuss with case management regarding placement.
09:15 -Per case management, will try and get patient into a SNF today
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 Will admit to hospitalist service
ED Attending Note
<Amber Lopez DO - Last Filed: 02/04/24 06:00>
-
Portions of this chart may have been created with voice recognition software.� Occasional wrong word or��sound alike� substitutions may have occurred due to the inherent limitations of voice recognition software.
Discharge Plan
Departure
Patient with high blood pressure during this ER visit?: No
Condition: Good
Discharge Problem:
comminuted fracture left clavicle
Instructions: Fractures - Clavicle (Adult)
Prescriptions:
New
diclofenac sodium 75 mg tablet,delayed release (DR/EC)
75 mg PO BID PRN (Reason: pain) Qty: 30 0RF
No Action
escitalopram oxalate 10 MG tablet
10 mg PO DAILY
Gleostine 100 mg capsule
100 mg PO Q3W
Matulane 50 mg capsule
50 mg PO . DIRECTED
Rx Instructions:
2 tabs (100mg) daily for 2 weeks, then off for 2 weeks.
pantoprazole 40 mg tablet,delayed release (DR/EC)
40 mg PO DAILY
cabergoline 0.5 mg tablet
0.25 mg PO TUFR
polyethylene glycol 3350 [Miralax] 17 gram Powder In Packet
17 g PO DAILY PRN (Reason: constipation)
ondansetron HCl 4 mg tablet
4 mg PO Q8HPRN PRN (Reason: nausea/vomiting)
Excedrin Migraine 250-250-65 mg Tablet
2 tab PO Q6H PRN (Reason: headache)
levetiracetam 750 mg tablet
1,500 mg PO BID
acetaminophen 325 mg tablet
650 mg PO Q6HPRN PRN (Reason: mild pain)
lisinopril 40 mg tablet
60 mg PO DAILY
amlodipine 10 mg tablet
10 mg PO DAILY Qty: 30 0RF
potassium chloride [Klor-Con] 20 mEq Packet
40 meq PO DAILY Qty: 90 0RF
dexamethasone 2 mg tablet
2 mg PO DAILY Qty: 30 0RF
lacosamide 200 mg Tablet
200 mg PO BID Qty: 60 0RF
Referrals:
Shanice Motley PA-C [Family Provider] -
Blair Avelar MD [Active] - Call in 1-3 days for appt
Interventions
Interventions:
*Risk Screen - Suicide Last Done: 02/04/24 03:07
*General Assessment Last Done: 02/04/24 03:07
*Neglect/Abuse Screening Last Done: 02/04/24 03:07
ED- Fall Risk Assessment Last Done: 02/04/24 03:07
*ED COVID-19 Vaccine History Last Done: 02/04/24 03:07
ED-Musculoskeletal Assessment Last Done: 02/04/24 03:07
Discharge Date and Time
Print Language: WOLOF
[2024-02-04] MEDS: MORPHINE SULFATE 4 MG IV ×2 (07:37→11:45)
--- NOTE | 2024-02-04 09:36 | CM ---
Addendum entered by Bakari Sanches 02/04/24 11:19:
[facility] as pt's preferred SNF has no bed available. No responses from other SNFs as of now.
[facility] requested OT evaluation and Autopsy Pathologist consult in order to determine an acute level of rehab eligibility.
MD is aware.
D/C plan: [facility]. Awaiting OT evaluations and Autopsy Pathologist consult.
CM will follow to assist pt with discharge t [facility].
Original Note:
CM following re: discharge planning.
CM consulted to assist pt with discharge planning.
Reviewed pt's chart, discussed with MD.
Pt is a 58 year old male,a arrived to ED after he fell that resulted to comminuted fracture distal left clavicle with widening of the AC joint.
Pt reports he Lives in an 8th floor apartment with elevator access, has no family, has supportive ex-partner Jeane, supportive friends. Patient reports he was discharged from [facility] within the last 2 weeks Was wheelchair level but
transferring independently. Patient reports he was self propelling wheelchair with RUE/RLE; at least 2 falls since returning home. Pt reports he has a wheelchair, BSC. Pt reports he is active with [facility] and has 6 hours of caregiver services per week
provided by [facility] home care.
PT evaluations noted - acute rehab/skilled level recommended. Pt is aware, expressed his agreement and pt preferred [facility]. MATT explained to the pt admitting criteria for an acute level of rehab, he expressed his agreement, still
preferred his interest in acute rehab at [facility]. For a back up plan, MATT provided pt with a list of SNFs. Pt preferred to stay in [facility] and following SNFs preferred: [facility], [facility], [facility],
[facility].
A referral to [facility] and preferred SNFs for a back up plan made. Awaiting for determination.
Pt will need insurance auth for either [facility] or a preferred SNF.
D/C plan: Plan A: [facility]; Plan B: preferred and accepted SNF.
CM will follow to assist pt with discharge to [facility] acute rehab or to a preferred SNF.
[2024-02-04 11:47] LABS: % Basophils 0.5 % (0-2); % Eosinophils 0.2 % (0-6); % Immature Granulocytes 0.5 % (0-0.5); % Lymphocytes 12.1 % (20.5-51.1); % Monocytes 15.6 % (1.7-9.3); % Neutrophils 71.1 % (42.2-75.2); Absolute Lymphocytes 0.7 10^3/uL (1.2-3.4); Absolute Monocytes 0.9 10^3/uL (0.1-0.6); Hematocrit 35.9 % (39.0-52.0); Hemoglobin 12.5 g/dL (13.0-18.0); Mean Corp Hgb Conc. 34.8 g/dL (33.0-37.0); Mean Corpuscular Hgb 36.3 pg (27.0-31.0); Mean Corpuscular Volume 104.4 fL (80.0-94.0); Nucleated Red Blood Cells % 0 % (-); Platelet Count 130 10^3/uL (130-400); Red Blood Cell Count 3.44 10^6/uL (4.70-6.10); Red Cell Dist. Width 14.6 % (11.5-14.5); White Blood Cell Count 5.7 10^3/uL (4.8-10.8)
[2024-02-04 12:17] LABS: ALT (SGPT) 38 U/L (0-50); AST (SGOT) 46 U/L (17-59); Albumin 4.1 g/dl (3.5-5.0); Alkaline Phosphatase 47 U/L (38-126); Blood Urea Nitrogen 15 mg/dl (9-20); Calcium 9.3 mg/dl (8.4-10.2); Carbon Dioxide 28 mmol/L (22-30); Chloride 104 mmol/L (98-107); Estimated Creatinine Clearance 120 ml/min; Glucose 88 mg/dl (70-99); Potassium 3.7 mmol/L (3.5-5.1); Sodium 140 mmol/L (135-145); Total Bilirubin 0.5 mg/dl (0.2-1.3); Total Protein 6.2 g/dl (6.3-8.2); eGFR > 60.00
--- NOTE | 2024-02-04 12:31 | HPS.HSE ---
Family Physician
-
Family Physician: Shanice Motley
Chief Complaint
-
Broken clavicle
History of Present Illness
58-year-old man who had lived at home alone, independently. He has a history of brain tumor (astrocytoma) status-post resection, a history of seizure disorder, and hypertension. Due to the brain tumor and the resection, he has had chronic left
hemiparesis, and is wheelchair bound. He had been able to transfer to a wheelchair and bed independently, and had been undergoing outpatient physical therapy. 1 week ago he had a fall that left him with left upper chest wall bruising. This has
been resolving. Then, he suffered another mechanical fall and fell directly onto his left shoulder. He denied head injury, loss of consciousness, neck nor back pain. He is Not maintained on anticoagulants. He does have a history of seizure
disorder, well-controlled with no recent breakthrough seizures. From this fall, he now has a broken clavicle and can no longer transfer independently. X-ray shows:
Comminuted fracture of the distal clavicle.
There is an elongated cortical avulsion fracture along the inferior margin of the mid to distal clavicle at the coracoclavicular ligament.
There is a superior angle comminuted fracture of the distal clavicle proximal to the distal clavicular articulation.
Preservation of the AC joint.
No shoulder fracture or dislocation.
At the time of my interview, he was comfortable and had no acute complaints. His arm was on a sling.
Medical History
Past Medical History
Past Medical History: Reports Other
Additional Past Medical History:
Cancer (Brain-right cerebral astrocytoma),
essential HTN
Seizure d/o
Tumor resection (brain surgery)
Past Surgical History: Reports Other
Additional Past Surgical History:
see above
Social History
Tobacco: Non-smoker
Alcohol: Occasional
Drug: None
Personal:
Living: Alone
Employment: Employed
Family History
Family History: Not pertinent
Allergies / Home Medications
Allergies reflects when Allergies were last updated in [employer].
Home Medications with original date entered in [employer]
Allergy/Medication List:
Allergies
Allergy/AdvReac Type Severity Reaction Status Date / Time
oxycodone [From Percocet] Allergy Itching/MATT Verified 11/02/23 17:04
SEA
Home Medications
escitalopram oxalate 10 mg tablet 10 mg PO DAILY Mental Health/Anxiety 11/04/16
cabergoline 0.5 mg tablet 0.5 mg PO TUFR Endocrine disorder 05/30/23
pantoprazole 40 mg tablet,delayed release 40 mg PO QPM Gastrointestinal Issue 05/30/23
lacosamide 200 mg tablet 200 mg PO BID #60 tabs 06/15/23
levetiracetam 750 mg tablet 1,500 mg PO BID 10/06/23
lisinopril 40 mg tablet 60 mg PO QPM 10/06/23
amlodipine 10 mg tablet 10 mg PO DAILY #30 tabs 10/08/23
baclofen 10 mg tablet 10 mg PO TID 02/04/24
clobazam 2.5 mg/mL oral suspension 5 mg PO QPM 02/04/24
dexamethasone 2 mg tablet 1 mg PO DAILY Anti-Inflammatory 02/04/24
docusate sodium 100 mg capsule 100 mg PO QPM 02/04/24
hydrochlorothiazide 25 mg tablet 25 mg PO DAILY 02/04/24
magnesium oxide 400 mg (241.3 mg magnesium) tablet 400 mg PO DAILY 02/04/24
potassium chloride 20 mEq tablet,extended release(part/cryst) 40 meq PO BID 02/04/24
Review of Systems
-
History Source: Patient
A 12 point ROS was completed and negative except as noted: Yes
Physical Exam
Vital Signs
Vital Signs
Temp Pulse Resp BP Pulse Ox
97.8 F 69 11 138/87 97
02/04/24 03:07 02/04/24 12:00 02/04/24 12:00 02/04/24 12:00 02/04/24 12:00
Physical Exam
General: Well Developed, Well Nourished, No Apparent Distress, Comfortable and Conversant
HEENT: NormoCephalic, Anicteric, Moist mucous membranes, Atraumatic, Nose Appears Normal and Ears Appear Normal
Respiratory: Clear
Cardiac: S1/S2 and Regular Rhythm
GI: Soft, Non Tender and Non Distended
Musculoskeletal: No Clubbing, No Cyanosis, Edema, Left Lower Extremity and Edema, Right Lower Extremity
Skin: Warm and Dry; No Rash or Jaundice
Neuro: Awake, Alert, Oriented and AO x 3
Psych: Calm
Laboratory Results
-
02/04/24 11:38
02/04/24 11:38
Laboratory Results
Total Bilirubin 0.5 mg/dl (0.2-1.3) 02/04/24 11:38
AST 46 U/L (17-59) 02/04/24 11:38
ALT 38 U/L (0-50) 02/04/24 11:38
Alkaline Phosphatase 47 U/L (38-126) 02/04/24 11:38
Data Reviewed
-
Lab Data: Labs Reviewed by me
Impression/Plan
-
IMPRESSION:
58 man with chronic L sided weakness, now with broken clavicle. He can no longer transfer independently.
PLAN:
1. Broken clavicle - conservative care. keep arm in sling. Outpt ortho consult.
2. Inability to transfer or do ADLs
Physiatry consult
PT consult
Placement in acute rehab
Code: DNR (he has capacity to make this choice)
VCD for DVTp
--- NOTE | 2024-02-04 14:56 | PTCARENOTE ---
Pt received to 2N, VSS, left arm sling in place, resting comfortably at this time.
[2024-02-04] MEDS: COLACE 100 MG PO (17:31)
[2024-02-04] MEDS: ZESTRIL 60 MG PO (17:31)
[2024-02-04] MEDS: PROTONIX 40 MG PO (17:36)
[2024-02-04] MEDS: LIORESAL 10 MG PO ×2 (17:36→22:17)
[2024-02-04] MEDS: MOTRIN 400 MG PO (18:27)
[2024-02-04] MEDS: NON-FORMULARY ITEM 5 MG PO (20:07)
[2024-02-04] MEDS: KEPPRA 1500 MG PO (20:15)
[2024-02-04] MEDS: KCL 40 MEQ PO (20:15)
[2024-02-04] MEDS: VIMPAT 200 MG PO (20:48)
[2024-02-04] MEDS: DILAUDID 0.5 MG IV (22:17)
[2024-02-05 07:42] VITALS: BP 151/102
[2024-02-05] MEDS: KEPPRA 1500 MG PO ×2 (08:45→20:06)
[2024-02-05] MEDS: DECADRON 1 MG PO (08:45)
[2024-02-05] MEDS: MAG-TAB SR 84 MG PO (08:45)
[2024-02-05] MEDS: LIORESAL 10 MG PO ×3 (08:45→22:34)
[2024-02-05] MEDS: LEXAPRO 10 MG PO (08:45)
[2024-02-05] MEDS: ORETIC 25 MG PO (08:45)
[2024-02-05] MEDS: VIMPAT 200 MG PO ×2 (08:46→20:06)
[2024-02-05] MEDS: KCL 40 MEQ PO ×2 (08:46→20:05)
[2024-02-05] MEDS: NORVASC 10 MG PO (08:46)
[2024-02-05] MEDS: TYLENOL 650 MG PO (08:51)
--- NOTE | 2024-02-05 09:14 | W.PN.HOSP.TC ---
Addendum entered and electronically signed by Reji Goss MD 02/05/24 09:31:
of note, pt is also on Lisinopril 60 mg daily
Addendum entered and electronically signed by Reji Goss MD 02/05/24 09:30:
will add low dose Toprol and adjust based on BP readings
Original Note:
Today's Communication/Plan
-
follow BP
bladder scans
ortho and Physiatry consults
Assessment / Plan
Assessment / Plan
58 man with chronic L sided weakness, now with broken clavicle. He can no longer transfer independently.Attempted to get up to urinate early Tuesday morning (02/03) fell with resultant fx
Comminuted fracture of the distal clavicle.
There is an elongated cortical avulsion fracture along the inferior margin of the mid to distal clavicle at the coracoclavicular ligament.
There is a superior angle comminuted fracture of the distal clavicle proximal to the distal clavicular articulation.
Preservation of the AC joint.
No shoulder fracture or dislocation.
Hx of Astrocytoma, s/p resection August 2021
Seizure Disorder
continue Keppra
Chronic Left Hemiparesis
essential HTN
BP most recently 151/102, on Amlodipine 10 mg daily and HCTZ 25 daily. If BP remains elevated, consider additional Rx over next 24 hrs
Urinary retention (>700 cc seen on bladder scan)
associated with chronic difficulty urinating if can not stand
will order bladder scans, straight cath if retaining >400 cc
PLAN:
Broken clavicle - conservative care. keep arm in sling.
call placed to Dr. Avelar of ortho (has been seen in their office in the past)
Physiatry consult
PT consult
bladder scans
change status to admission
Code: DNR (he has capacity to make this choice)
VCD for DVTp
Anticipated Discharge: > 48 hours
Subjective/Interval History
-
Date of Service: February 05, 2024
pain in fracture site, also with difficulty emptying his bladder
Objective Data
-
Vital Signs:
Vital Signs
Temp Pulse Resp BP Pulse Ox
97.9 F 74 16 151/102 95
02/05/24 07:42 02/05/24 08:46 02/05/24 07:42 02/05/24 08:46 02/05/24 07:42
I&O
02/04/24 02/05/24 02/06/24
06:59 06:59 06:59
Intake Total 840 / 840
Output Total 200 / 200
Balance 640 / 640
Review of Systems
-
History Source: Patient and Physician (discussed with Dr. Avelar)
Constitutional: Denies Fever
EENT: Reports No Symptoms Reported
Respiratory: Reports No Symptoms
Cardiac: Reports No Symptoms
Genitourinary: Reports Difficulty Voiding
Physical Exam
-
General: Well Developed, Well Nourished and No Apparent Distress
HEENT: Normocephalic, Atraumatic and Moist Mucous Membranes
Respiratory: Clear to Auscultation; Negative Wheezes, Rales or Rhonchi
Cardiac: Regular Rhythm and S1/S2
GI: Soft, Nontender and Nondistended
Musculoskeletal: No Clubbing, No Cyanosis, No Edema and Other (left arm in a sling)
Neuro: Awake, Alert and Oriented
--- NOTE | 2024-02-05 10:08 | CON.ORTHO ---
Consultation
-
Date/Time Consultation Requested: 02/05/24 0913
Date/Time Consultation Performed: 02/05/2024 1000
Requesting Provider: Dr. Reji Goss
Performing Provider: GENARO Hightower, Dr. Blair Avelar
Reason for Consultation: Left clavicle fracture
Consultation - Orthopedics
History
58-year-old male [id number] with significant past medical history of astrocytoma s/p resection in 2021 with remittance and secondary necrosis from radiation/chemotherapy with return of left-sided weakness currently wheelchair-bound.
Reports sustaining a mechanical fall out of his wheelchair with direct impact of his left shoulder. He reports at baseline he uses his arm for some transfer and does report he is able to perform active range of motion of the left shoulder at
baseline.
Allergies / Home Medications
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
Past surgical history: Tumor resection 2021
Medications: See list
Allergies: See list
Family history: No contributory
12 point ROS: Negative described in history present illness
Social history: Non-smoker, rare alcohol consumption; currently wheelchair dependent with left-sided hemiparesis but able to transfer. Lives independently
Allergy/AdvReac Type Severity Reaction Status Date / Time
oxycodone [From Percocet] Allergy Itching/MATT Verified 11/02/23 17:04
SEA
�Medication �Instructions �Recorded
escitalopram oxalate 10 mg tablet 10 mg PO DAILY Mental 11/04/16
Health/Anxiety
cabergoline 0.5 mg tablet 0.5 mg PO TUFR Endocrine disorder 05/30/23
pantoprazole 40 mg tablet,delayed 40 mg PO QPM Gastrointestinal Issue 05/30/23
release
lacosamide 200 mg tablet 200 mg PO BID #60 tabs 06/15/23
levetiracetam 750 mg tablet 1,500 mg PO BID SEIURE 10/06/23
lisinopril 40 mg tablet 60 mg PO QPM Blood Pressure 10/06/23
amlodipine 10 mg tablet 10 mg PO DAILY #30 tabs 10/08/23
baclofen 10 mg tablet 10 mg PO TID Muscle Spasms 02/04/24
clobazam 2.5 mg/mL oral suspension 5 mg PO QPM Seizures 02/04/24
dexamethasone 2 mg tablet 1 mg PO DAILY Anti-Inflammatory 02/04/24
docusate sodium 100 mg capsule 100 mg PO QPM STOOL SOFTENER 02/04/24
hydrochlorothiazide 25 mg tablet 25 mg PO DAILY Fluid 02/04/24
Retention/Swelling
magnesium oxide 400 mg (241.3 mg 400 mg PO DAILY Supplement 02/04/24
magnesium) tablet
potassium chloride 20 mEq 40 meq PO BID Supplement 02/04/24
tablet,extended release(part/cryst)
Vital Signs / Lab Results
Temp Pulse Resp BP Pulse Ox
97.9 F 74 16 151/102 95
02/05/24 07:42 02/05/24 08:46 02/05/24 07:42 02/05/24 08:46 02/05/24 07:42
PHYSICAL EXAM: Focused examination of the left upper extremity shows ecchymosis overlying the left shoulder with soft tissue swelling. Skin is intact. He is sensation intact light touch distally and demonstrates motor function intact and PIN and
ulnar nerve. He demonstrates 3+5 strength at the elbow and distally. Brisk capillary fill is 2 seconds palpable radial pulse 2+
IMAGING:X-rays taken of the left shoulder and left clavicle reviewed showing displaced distal third comminuted clavicle fracture. Glenohumeral joint and proximal humerus appears intact as well as the acromioclavicular joint. Significant amount of
fracture displacement however no significant shortening appreciated
02/04/24 11:38
02/04/24 11:38
Assessment / Plan
58-year-old [id number] male currently admitted after a fall mechanical in nature with direct impact to left upper extremity showing comminuted significantly displaced left distal third clavicle fracture. Significant past medical history of
left-sided hemiparesis relative to his chemotherapy/radiation treatment of his astrocytoma after recurrence with previous resection in 2021
-Patient does have baseline limited function of his left upper extremity but still utilized for transfers and different activities.
-Discussed with the patient that the prognosis and overall recovery between operative and nonoperative of clavicle fractures is similar, however with the amount of displacement hat his fracture has may be indicated for operative invention. We
discussed with a more distal third this may utilize other construct such as a hook plate of the acromion. Recommended for CT scan of the left shoulder for further detail of fracture pattern and surgical planning and further discussion with her
upper extremity surgeon tomorrow.
-Utilize sling for comfort when upright. May take breaks from sling when at rest. May perform elbow wrist and hand range of motion to avoid stiffness. No range of motion of the left shoulder. Nonweightbearing left upper extremity
-Orthopedic surgery will continue to follow to review CT scan tomorrow and further discussion with upper extremity surgeon; possible for the OR 07 February 2024 pending discussion with patient and upper extremity surgeon
[2024-02-05] MEDS: TOPROL XL 25 MG PO (11:15)
[2024-02-05 11:18] VITALS: BP 135/85
--- NOTE | 2024-02-05 12:13 | CM ---
Reviewed the chart notes and spoke with the patient at the bedside. The patient is being admitted under observational status. The observational letter was provided and explained. The patient had no questions with regards to the letter.
The patient expects to go to the OR on Tuesday for clavicle fracture repair. CM continues to be available to patient/family and is monitoring medical plan for needs at discharge.
Plan: Discharge plans will depend on the patient's progress. Patient is hoping for acute rehab. Precert will be required.
[2024-02-05 12:47] VITALS: BMI 30.8
[2024-02-05 15:29] VITALS: BP 143/96
[2024-02-05] MEDS: COLACE 100 MG PO (17:19)
[2024-02-05] MEDS: PROTONIX 40 MG PO (17:19)
[2024-02-05] MEDS: ZESTRIL 60 MG PO (17:19)
[2024-02-05] MEDS: NON-FORMULARY ITEM 2.5 MG PO (17:20)
[2024-02-05] MEDS: MOTRIN 400 MG PO (22:34)
[2024-02-05 23:11] VITALS: BP 131/86
[2024-02-06 07:05] VITALS: BP 149/98
[2024-02-06] MEDS: KEPPRA 1500 MG PO ×2 (08:01→20:17)
[2024-02-06] MEDS: VIMPAT 200 MG PO ×2 (08:01→20:18)
[2024-02-06] MEDS: KCL 40 MEQ PO ×2 (08:02→20:17)
[2024-02-06] MEDS: MAG-TAB SR 84 MG PO (08:02)
[2024-02-06] MEDS: TOPROL XL 25 MG PO (08:03)
[2024-02-06] MEDS: ORETIC 25 MG PO (08:04)
[2024-02-06] MEDS: NORVASC 10 MG PO (08:04)
[2024-02-06] MEDS: LIORESAL 10 MG PO ×3 (08:04→21:06)
[2024-02-06] MEDS: LEXAPRO 10 MG PO (08:04)
[2024-02-06] MEDS: DECADRON 1 MG PO (08:05)
[2024-02-06] MEDS: SENOKOT-S 1 TABLET PO ×2 (08:06→20:30)
--- NOTE | 2024-02-06 08:20 | CON.MD ---
Documented by User: Keisha Brumfield PA-C 02/07/24 15:08
Consultation - Medical
-
Referral:
Chief Complaint: Mobility impairment
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
from radiation/chemotherapy with left-sided weakness currently wheelchair-bound. Was hospitalized at [facility] for left-sided weakness then completed 20 days of rehabilitation at [facility]. Patient was discharged from [facility] rehab within the
last 2 weeks. Was wheelchair level but transferring independently. He reports that he was self-propelling wheelchair with right upper extremity/right lower extremity. At least 2 falls since returning home. Was getting visiting [employer] 2-3 hours 4-5
days a week, PT/OT in home.
Reports sustaining a mechanical fall 1 week prior to this admission then another fall on 02/03 out of his wheelchair with direct impact of his left shoulder. He uses his arm for some transfer and does report he is able to perform active range of
motion of the left shoulder at baseline. He does have history of seizure disorder but over the past several months well-controlled with no recent breakthrough seizures. Reports seeing PMR OP for an evaluation with recent EMG. Is scheduled for OP
botox injection next week.
X-rays taken of the left shoulder and left clavicle reviewed showing displaced distal third comminuted clavicle fracture. Glenohumeral joint and proximal humerus appears intact as well as the acromioclavicular joint. Significant amount of fracture
displacement however no significant shortening appreciated
Patient scheduled for the OR later on today.
Past Medical History: Right brain astrocytoma with radiation, chemotherapy, surgical resection, epilepsy, HTN, pulmonary embolism, alcohol abuse, hematochezia
Procedure History: Right parietal craniotomy for astrocytoma resection, Max assist LE dressing.
Family History: None pertinent
Social History:
Functional Level Premorbidly:�Modified independent with all activities, wheelchair level but transfers independently.
Functional Level Currently:�� Min assist-bed mobility, max assist x 2-transfers, attempted stand pivot transfer patient unable to complete transfer despite max assist x 2. Unable to advance right lower extremity.
Tobacco:�Denies
Alcohol:�yes
Drug use:�Denies
Lives with: Alone
24-hour assistance available: No
Number of floors: 1
# steps to enter: 8th floor apartment with elevator access
Driving: no
Occupation:
�
Allergies:
Allergy/AdvReac Type Severity Reaction Status Date / Time
oxycodone [From Percocet] Allergy Itching/MATT Verified 11/02/23 17:04
SEA
Review of Systems:
Constitutional: (x) abNormal _fatigue
�Eye: (x) Normal _
�Ear/Nose/Throat: (x) Normal _
�Respiratory: (x) Normal _
�Cardiovascular: (x) Normal _
�Gastrointestinal: (x) abNormal _
�Genitourinary: (x) Normal _
�Musculoskeletal: (x) left shoulder pain, fractured left clavicle
�Integumentary: (x) Normal _
�Neurologic: (x) abNormal _seizures, left sided weakness.
�Psychiatric: (x) Normal _
�Endocrine: (x) Normal _
�Hematologic/Lymphatic: (x) Normal _
�Allergic/Immunologic: (x) Normal _
Medications:
Active Current Visit Medication List
Category Date Time Status
Acetaminophen [Tylenol] Med 02/04/24 14:18 Active
650 mg PO Q4HPRN PRN
Amlodipine [Norvasc] Med 02/05/24 08:00 Active
10 mg PO DAILY
Baclofen [Lioresal] Med 02/04/24 16:00 Active
10 mg PO TID
Bisacodyl [Dulcolax] Med 02/04/24 14:18 Active
10 mg RECTAL [id number] PRN
Dexamethasone [Decadron] Med 02/05/24 08:00 Active
1 mg PO DAILY
Docusate Sodium [Colace] Med 02/04/24 18:00 Active
100 mg PO QPM
Docusate W/Senna [Senokot-S] Med 02/04/24 14:18 Active
1 tablet PO BIDPRN PRN
Escitalopram Oxalate [Lexapro] Med 02/05/24 08:00 Active
10 mg PO DAILY
HYDROmorphone [Dilaudid] Med 02/04/24 18:38 Active
0.5 mg IV Q3HPRN PRN
Hydrochlorothiazide [Oretic] Med 02/05/24 08:00 Active
25 mg PO DAILY
Ibuprofen [Motrin] Med 02/04/24 14:18 Active
400 mg PO Q6HPRN PRN
Lacosamide [Vimpat] Med 02/04/24 20:00 Active
200 mg PO BID
Levetiracetam [Keppra] Med 02/04/24 20:00 Active
1,500 mg PO BID
Lisinopril [Zestril] Med 02/04/24 18:00 Active
60 mg PO QPM
Magnesium l-Lactate [Mag-Tab Sr] Med 02/05/24 08:00 Active
84 mg PO DAILY
Metoprolol Xl [Toprol Xl] Med 02/05/24 10:00 Active
25 mg PO DAILY
Pantoprazole [Protonix] Med 02/04/24 18:00 Active
40 mg PO QPM
Polyethylene Glycol Powder [Miralax] Med 02/04/24 14:18 Active
17 grams PO DAILYPRN PRN
Potassium Chloride [KCl] Med 02/04/24 20:00 Active
40 meq PO BID
cabergoline Med 02/07/24 12:45 Pending
0.5 mg PO TUFR
clobazam Med 02/04/24 18:00 Active
See Dose Instructions PO QPM
Vitals:
Temp Pulse Resp BP Pulse Ox
97.3 F 60 16 150/92 99
02/07/24 07:05 02/07/24 08:30 02/07/24 07:05 02/07/24 08:30 02/07/24 07:05
Height 5 ft 8 in
Actual Weight 91.739 kg
Body Mass Index (BMI) 30.8
Physical Exam:
General Appearance/Observation: NAD
Pain/Comfort Assessment: Denies at the moment
Mood/Affect: Appropriate
Integumentary/Operative Site:
�� Pressure Ulcer Evaluation: absent over heels.
��
�� Other Type of Wound: large bruise left side of neck
��
Eyes: Conjunctiva/Lids: normal ��� Pupils: pupils equal round and reactive to light and Accommodation
Ears/Nose/Throat: oral mucosa moist,� throat clear.�� Moist Mucous Membranes��������� Lips/Teeth/Gums: normal
Neck: No muscle spasm or tenderness
Cardiovascular: Heart: regular rate, rhythm
Pulses: dorsalis pedis 2+ bilaterally
Respiratory: not labored, normal
Gastrointestinal: Soft, Nontender and Nondistended
Genitourinary: No Valdovinos
Extremities: Edema: None Cyanosis: None Trophic changes: None
Neurology Exam:
Orientation: Alert, Oriented to self, Time, Place
Memory: Intact for immediate medical concerns.
Higher cortical function
Repetition: Intact
Comprehension: Intact
Two step command: Intact
Naming: Intact
Cranial Nerves:
�� CNII: Pupillary light reflex: Intact��� Visual Field: Intact
�� CN III, IV, : Extraocular muscles: Intact
�� CN V: Facial Sensation at Forehead: Intact, Maxilla: Intact, Mandible: Intact
�� CN VII: Facial movement: intact
�� CN VIII: Hearing: Normal
�� CN IX/X: Speech & swallow: normal Position of Uvula: Midline
�� CN XI: Shoulder shrug: Symmetric
�� CN XII: Tongue protrusion: Midline
Sensory:
�� Light touch: Intact in bilateral upper and lower extremities
��
Reflexes:
�� Biceps: 3+ bilaterally
�� Brachioradialis: 3+ bilaterally
�� Triceps: 3+ bilaterally
�� Patellar: 4+ bilaterally
�� Achilles: 4+ right, absent left
�� Clonus: increased tone of left ankle/foot with curling up of toes
�� Raysa: Negative bilaterally
Musculoskeletal:
Motor: (Manual muscle scale 0-5)
Muscle SA EF WE EE FF FA HF KE DF EHL PF
Right� 5 5 5 5 5 5 5 5 5
Left NT 3+ 3+ 3+ 3 3 1 1 1
left handgrip 4
Tone: Normal in all extremities, increased tone in the left ankle, foot
Range of Motion: Passively within normal limits in all extremities, except left ankle/foot, deferred left shoulder
Lab Results:
Labs
WBC 5.7 10^3/uL (4.8-10.8) 02/04/24 11:38
RBC 3.44 10^6/uL (4.70-6.10) L 02/04/24 11:38
Hgb 12.5 g/dL (13.0-18.0) L 02/04/24 11:38
Hct 35.9 % (39.0-52.0) L 02/04/24 11:38
MCV 104.4 fL (80.0-94.0) H 02/04/24 11:38
MCH 36.3 pg (27.0-31.0) H 02/04/24 11:38
MCHC 34.8 g/dL (33.0-37.0) 02/04/24 11:38
RDW 14.6 % (11.5-14.5) H 02/04/24 11:38
Plt Count 130 10^3/uL (130-400) 02/04/24 11:38
MPV 9.0 fL (7.4-10.4) 02/04/24 11:38
Abs Immat Gran (auto) 0.0 10^3/uL (0-0.05) 02/04/24 11:38
Absolute Neuts (auto) 4.0 10^3/uL (1.4-6.5) 02/04/24 11:38
Absolute Lymphs (auto) 0.7 10^3/uL (1.2-3.4) L 02/04/24 11:38
Absolute Monos (auto) 0.9 10^3/uL (0.1-0.6) H 02/04/24 11:38
Absolute Eos (auto) 0.0 10^3/uL (0-0.7) 02/04/24 11:38
Absolute Basos (auto) 0.0 10^3/uL (0-0.2) 02/04/24 11:38
Immature Gran % 0.5 % (0-0.5) 02/04/24 11:38
Neutrophils % 71.1 % (42.2-75.2) 02/04/24 11:38
Lymphocytes % 12.1 % (20.5-51.1) L 02/04/24 11:38
Monocytes % 15.6 % (1.7-9.3) H 02/04/24 11:38
Eosinophils % 0.2 % (0-6) 02/04/24 11:38
Basophils % 0.5 % (0-2) 02/04/24 11:38
Nucleated RBC % 0 % (-) 02/04/24 11:38
Sodium 140 mmol/L (135-145) 02/04/24 11:38
Potassium 3.7 mmol/L (3.5-5.1) 02/04/24 11:38
Chloride 104 mmol/L (98-107) 02/04/24 11:38
Carbon Dioxide 28 mmol/L (22-30) 02/04/24 11:38
BUN 15 mg/dl (9-20) 02/04/24 11:38
Creatinine 0.7 mg/dL (0.7-1.3) 02/04/24 11:38
Estimated Creat Clear 120 ml/min 02/04/24 11:38
eGFR > 60.00 02/04/24 11:38
Glucose 88 mg/dl (70-99) 02/04/24 11:38
Calcium 9.3 mg/dl (8.4-10.2) 02/04/24 11:38
Total Bilirubin 0.5 mg/dl (0.2-1.3) 02/04/24 11:38
AST 46 U/L (17-59) 02/04/24 11:38
ALT 38 U/L (0-50) 02/04/24 11:38
Alkaline Phosphatase 47 U/L (38-126) 02/04/24 11:38
Total Protein 6.2 g/dl (6.3-8.2) L 02/04/24 11:38
Albumin 4.1 g/dl (3.5-5.0) 02/04/24 11:38
Diagnostic Results: As per HPI
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
radiation/chemotherapy with left-sided weakness wheelchair-bound sustaining a mechanical fall impacting left shoulder. Due to to undergo surgery for left clavicle fracture on 02/06.
Plan
Acute inpatient rehab with PT/OT/SW/RN/psychology to increase independence with ADLs, improve balance, coordination, endurance, strength, mobility, community reintegration, decreased burden of care on others and family education.
Left Clavicle fracture: displaced distal third comminuted clavicle fracture.Utilize sling for comfort when upright. May take breaks from sling when at rest. May perform elbow wrist and hand range of motion to avoid stiffness. No range of motion
of the left shoulder. Nonweightbearing left upper extremity. Surgery scheduled for 02/06.
Right brain astrocytoma: Reoccurrence October 2022 with chemo and radiation with worsening of left sided symptoms causing ADL and ambulatory dysfunction.
Seizure: Decadron 1 mg daily lacosamide 200 mg twice daily, Keppra 1500 twice daily. Clobazam 2.5 mg/ML suspension, 5 mg every afternoon. seizure precautions
Left non-dominant hemiparesis: PT/OT.- Baclofen 10 mg 3 times daily. Had OP EMG. Scheduled for Botox OP next week.
Spasticity: Baclofen 10mg tid
HTN: Amlodipine 10 mg, lisinopril 60 mg, HCTZ 25 mg, potassium chloride 40 meq twice, metoprolol succinate 25 mg daily.
Macrocytic Anemia: Likely multifactorial.� Has been low, stable in 11 range, monitor.
FEN: Regular diet
Anxiety: Psychology consulted.� , Lexapro 10 mg daily as needed.
Skin: monitor for pressure sores/rashes/lesions.
Pain: Ibuprofen 400 mg every 6 as needed, Dilaudid 0.5 mg IV every 3 hours as needed, Tylenol 650 every 4 hours as needed as needed.
Bowel: MiraLAX 17 g, Senokot�S1 tab twice daily as needed, Dulcolax 10 mg rectal every 48 hours as needed
Bladder: Time void, PVRs, PRN straight cath.
Alcohol Abuse: Alcohol cessation education, offering of outpatient alcohol abuse program, Thiamine and folate
GI Prophylaxis: Pantoprazole 40 mg daily
Pulmonary Embolism history: Eliquis, Incentive spirometry
Safety: Continue to reinforce assistance with all transfers.
Code Status:�DNR
Dispo�(date/plan/equipment needs): Home with family care.
Destination: SNF
Summary recommendation: Patient with history of brain surgery and left hemiparesis functional at wheelchair level for the past 2 months with recent left clavicular fracture currently functional at Min assist-bed mobility, max assist x 2-transfers,
attempted stand pivot transfer and unable to complete transfer despite max assist x 2. Unable to advance right lower extremity. Was at [facility] for rehabilitation x 20 days with recent discharge approximately 2-3 weeks? would benefit from PT/OT
at SNF facility to improve strength and healing.
Left Clavicle fracture: displaced distal third comminuted clavicle fracture.Utilize sling for comfort when upright. May take breaks from sling when at rest. May perform elbow wrist and hand range of motion to avoid stiffness. No range of motion
of the left shoulder. Nonweightbearing left upper extremity. Surgery scheduled for 02/06.
Left non-dominant hemiparesis: PT/OT.- Baclofen 10 mg 3 times daily
HTN: Amlodipine 10 mg, lisinopril 60 mg, HCTZ 25 mg, potassium chloride 40 meq twice, metoprolol succinate 25 mg daily.
Pain: Ibuprofen 400 mg every 6 as needed, Dilaudid 0.5 mg IV every 3 hours as needed, Tylenol 650 every 4 hours as needed as needed.
Bowel: MiraLAX 17 g, Senokot�S1 tab twice daily as needed, Dulcolax 10 mg rectal every 48 hours as needed
Bladder: Time void, PVRs, PRN straight cath.
Alcohol Abuse: Alcohol cessation education, offering of outpatient alcohol abuse program, Thiamine and folate
GI Prophylaxis: Pantoprazole 40 mg daily
Pulmonary Embolism history: Eliquis, Incentive spirometry
Safety: Continue to reinforce assistance with all transfers.

Documented by User: Oliver Corbett MD 02/07/24 18:32
Consultation - Medical
-
Referral: Dr. Alexander Jimenez
Chief Complaint: Mobility impairment
History of Present Illness: 58-year-old male [id number] with PMH of Right brain astrocytoma with radiation, chemotherapy, surgical resection in 2021 with remittance , epilepsy, HTN, pulmonary embolism, alcohol abuse and secondary necrosis
from radiation/chemotherapy with left-sided weakness currently wheelchair-bound. Was hospitalized at [facility] for left-sided weakness then completed 20 days of rehabilitation at [facility]. Patient was discharged from [facility] rehab within the
last 2 weeks. Was wheelchair level but transferring independently. He reports that he was self-propelling wheelchair with right upper extremity/right lower extremity. At least 2 falls since returning home. Was getting visiting [employer] INST[employer]ER 2-3 hours 4-5
days a week, PT/OT in home.
Reports sustaining a mechanical fall 1 week prior to this admission then another fall on 02/03 out of his wheelchair with direct impact of his left shoulder. He uses his arm for some transfer and does report he is able to perform active range of
motion of the left shoulder at baseline. He does have history of seizure disorder but over the past several months well-controlled with no recent breakthrough seizures. Reports seeing PMR OP for an evaluation with recent EMG. Is scheduled for OP
botox injection next week.
X-rays taken of the left shoulder and left clavicle reviewed showing displaced distal third comminuted clavicle fracture. Glenohumeral joint and proximal humerus appears intact as well as the acromioclavicular joint. Significant amount of fracture
displacement however no significant shortening appreciated
Patient scheduled for the OR later on today.
Past Medical History: Right brain astrocytoma with radiation, chemotherapy, surgical resection, epilepsy, HTN, pulmonary embolism, alcohol abuse, hematochezia
Procedure History: Right parietal craniotomy for astrocytoma resection, Max assist LE dressing.
Family History: None pertinent
Social History:
Functional Level Premorbidly:�Modified independent with all activities, wheelchair level but transfers independently.
Functional Level Currently:�� Min assist-bed mobility, max assist x 2-transfers, attempted stand pivot transfer patient unable to complete transfer despite max assist x 2. Unable to advance right lower extremity.
Tobacco:�Denies
Alcohol:�yes
Drug use:�Denies
Lives with: Alone
24-hour assistance available: No
Number of floors: 1
# steps to enter: 8th floor apartment with elevator access
Driving: no
Occupation: Not employed
�
Allergies:
Allergy/AdvReac Type Severity Reaction Status Date / Time
oxycodone [From Percocet] Allergy Itching/MATT Verified 11/02/23 17:04
SEA
Review of Systems:
Constitutional: (x) abNormal _fatigue
�Eye: (x) Normal _
�Ear/Nose/Throat: (x) Normal _
�Respiratory: (x) Normal _
�Cardiovascular: (x) Normal _
�Gastrointestinal: (x) abNormal _
�Genitourinary: (x) Normal _
�Musculoskeletal: (x) left shoulder pain, fractured left clavicle
�Integumentary: (x) Normal _
�Neurologic: (x) abNormal _seizures, left sided weakness. Increased tone left leg from spasms, planned for Botox next week
�Psychiatric: (x) Normal _
�Endocrine: (x) Normal _
�Hematologic/Lymphatic: (x) Normal _
�Allergic/Immunologic: (x) Normal _
Medications:
Active Current Visit Medication List
Category Date Time Status
Acetaminophen [Tylenol] Med 02/04/24 14:18 Active
650 mg PO Q4HPRN PRN
Amlodipine [Norvasc] Med 02/05/24 08:00 Active
10 mg PO DAILY
Baclofen [Lioresal] Med 02/04/24 16:00 Active
10 mg PO TID
Bisacodyl [Dulcolax] Med 02/04/24 14:18 Active
10 mg RECTAL [id number] PRN
Dexamethasone [Decadron] Med 02/05/24 08:00 Active
1 mg PO DAILY
Docusate Sodium [Colace] Med 02/04/24 18:00 Active
100 mg PO QPM
Docusate W/Senna [Senokot-S] Med 02/04/24 14:18 Active
1 tablet PO BIDPRN PRN
Escitalopram Oxalate [Lexapro] Med 02/05/24 08:00 Active
10 mg PO DAILY
HYDROmorphone [Dilaudid] Med 02/04/24 18:38 Active
0.5 mg IV Q3HPRN PRN
Hydrochlorothiazide [Oretic] Med 02/05/24 08:00 Active
25 mg PO DAILY
Ibuprofen [Motrin] Med 02/04/24 14:18 Active
400 mg PO Q6HPRN PRN
Lacosamide [Vimpat] Med 02/04/24 20:00 Active
200 mg PO BID
Levetiracetam [Keppra] Med 02/04/24 20:00 Active
1,500 mg PO BID
Lisinopril [Zestril] Med 02/04/24 18:00 Active
60 mg PO QPM
Magnesium l-Lactate [Mag-Tab Sr] Med 02/05/24 08:00 Active
84 mg PO DAILY
Metoprolol Xl [Toprol Xl] Med 02/05/24 10:00 Active
25 mg PO DAILY
Pantoprazole [Protonix] Med 02/04/24 18:00 Active
40 mg PO QPM
Polyethylene Glycol Powder [Miralax] Med 02/04/24 14:18 Active
17 grams PO DAILYPRN PRN
Potassium Chloride [KCl] Med 02/04/24 20:00 Active
40 meq PO BID
cabergoline Med 02/07/24 12:45 Pending
0.5 mg PO TUFR
clobazam Med 02/04/24 18:00 Active
See Dose Instructions PO QPM
Vitals:
Temp Pulse Resp BP Pulse Ox
97.3 F 60 16 150/92 99
02/07/24 07:05 02/07/24 08:30 02/07/24 07:05 02/07/24 08:30 02/07/24 07:05
Height 5 ft 8 in
Actual Weight 91.739 kg
Body Mass Index (BMI) 30.8
Physical Exam:
General Appearance/Observation: NAD
Pain/Comfort Assessment: Denies at the moment
Mood/Affect: Appropriate
Integumentary/Operative Site:
�� Pressure Ulcer Evaluation: absent over heels.
�� Other Type of Wound: large bruise left side of neck
Eyes: Conjunctiva/Lids: normal ��� Pupils: pupils equal round and reactive to light and Accommodation
Ears/Nose/Throat: oral mucosa moist,� throat clear.�� Moist Mucous Membranes��������� Lips/Teeth/Gums: normal
Neck: left neck muscle spasm and tenderness
Cardiovascular: Heart: regular rate, rhythm
Pulses: dorsalis pedis 2+ bilaterally
Respiratory: not labored, normal
Gastrointestinal: Soft, Nontender and Nondistended
Genitourinary: No Valdovinos
Extremities: Edema: None Cyanosis: None Trophic changes: None
Neurology Exam:
Orientation: Alert, Oriented to self, Time, Place
Memory: Intact for immediate medical concerns.
Repetition: Intact
Comprehension: Intact
Two step command: Intact
Naming: Intact
Cranial Nerves:
�� CNII: Pupillary light reflex: Intact��� Visual Field: Intact
�� CN III, IV, : Extraocular muscles: Intact
�� CN V: Facial Sensation at Forehead: Intact, Maxilla: Intact, Mandible: Intact
�� CN VII: Facial movement: left facial weakness
�� CN VIII: Hearing: Normal
�� CN IX/X: Speech & swallow: normal Position of Uvula: Midline
�� CN XI: Shoulder shrug: decreased on left
�� CN XII: Tongue protrusion: Midline
Sensory:
�� Light touch: Intact in bilateral upper and lower extremities
��
Reflexes:
�� Biceps: 3+ bilaterally
�� Brachioradialis: 3+ bilaterally
�� Triceps: 3+ bilaterally
�� Patellar: 4+ bilaterally
�� Achilles: 4+ right, absent left
�� Clonus: increased tone of left ankle/foot with curling up of toes
�� Raysa: Negative bilaterally
Musculoskeletal: Motor: (Manual muscle scale 0-5)
Muscle SA EF WE EE FF FA HF KE DF EHL PF
Right� 5 5 5 5 5 5 5 5 5 5
Left NT 3+ 3+ 3+ 4 3 3 1 1 1
Tone: Normal in all extremities, increased tone in the left leg particularly ankle, foot
Range of Motion: Passively within normal limits in all extremities, except left ankle/foot, deferred left shoulder
Lab Results:
Labs
WBC 5.7 10^3/uL (4.8-10.8) 02/04/24 11:38
RBC 3.44 10^6/uL (4.70-6.10) L 02/04/24 11:38
Hgb 12.5 g/dL (13.0-18.0) L 02/04/24 11:38
Hct 35.9 % (39.0-52.0) L 02/04/24 11:38
MCV 104.4 fL (80.0-94.0) H 02/04/24 11:38
MCH 36.3 pg (27.0-31.0) H 02/04/24 11:38
MCHC 34.8 g/dL (33.0-37.0) 02/04/24 11:38
RDW 14.6 % (11.5-14.5) H 02/04/24 11:38
Plt Count 130 10^3/uL (130-400) 02/04/24 11:38
MPV 9.0 fL (7.4-10.4) 02/04/24 11:38
Abs Immat Gran (auto) 0.0 10^3/uL (0-0.05) 02/04/24 11:38
Absolute Neuts (auto) 4.0 10^3/uL (1.4-6.5) 02/04/24 11:38
Absolute Lymphs (auto) 0.7 10^3/uL (1.2-3.4) L 02/04/24 11:38
Absolute Monos (auto) 0.9 10^3/uL (0.1-0.6) H 02/04/24 11:38
Absolute Eos (auto) 0.0 10^3/uL (0-0.7) 02/04/24 11:38
Absolute Basos (auto) 0.0 10^3/uL (0-0.2) 02/04/24 11:38
Immature Gran % 0.5 % (0-0.5) 02/04/24 11:38
Neutrophils % 71.1 % (42.2-75.2) 02/04/24 11:38
Lymphocytes % 12.1 % (20.5-51.1) L 02/04/24 11:38
Monocytes % 15.6 % (1.7-9.3) H 02/04/24 11:38
Eosinophils % 0.2 % (0-6) 02/04/24 11:38
Basophils % 0.5 % (0-2) 02/04/24 11:38
Nucleated RBC % 0 % (-) 02/04/24 11:38
Sodium 140 mmol/L (135-145) 02/04/24 11:38
Potassium 3.7 mmol/L (3.5-5.1) 02/04/24 11:38
Chloride 104 mmol/L (98-107) 02/04/24 11:38
Carbon Dioxide 28 mmol/L (22-30) 02/04/24 11:38
BUN 15 mg/dl (9-20) 02/04/24 11:38
Creatinine 0.7 mg/dL (0.7-1.3) 02/04/24 11:38
Estimated Creat Clear 120 ml/min 02/04/24 11:38
eGFR > 60.00 02/04/24 11:38
Glucose 88 mg/dl (70-99) 02/04/24 11:38
Calcium 9.3 mg/dl (8.4-10.2) 02/04/24 11:38
Total Bilirubin 0.5 mg/dl (0.2-1.3) 02/04/24 11:38
AST 46 U/L (17-59) 02/04/24 11:38
ALT 38 U/L (0-50) 02/04/24 11:38
Alkaline Phosphatase 47 U/L (38-126) 02/04/24 11:38
Total Protein 6.2 g/dl (6.3-8.2) L 02/04/24 11:38
Albumin 4.1 g/dl (3.5-5.0) 02/04/24 11:38
Diagnostic Results: As per HPI
Assessment: 58-year-old male lyluh-[id number]-satoiecc with PMH of Right brain astrocytoma with radiation, chemotherapy, surgical resection in 2021 with remittance , epilepsy, HTN, pulmonary embolism, alcohol abuse and secondary necrosis from
radiation/chemotherapy with left-sided weakness wheelchair-bound sustaining a mechanical fall impacting left shoulder. Due to to undergo surgery for left clavicle fracture on 02/06.
Plan
PM&R: PT/OT/SW/RN/psychology to increase independence with ADLs, improve balance, coordination, endurance, strength, mobility, community reintegration, decreased burden of care on others and family education.
Left Clavicle fracture: displaced distal third comminuted clavicle fracture.Utilize sling for comfort when upright. May take breaks from sling when at rest. May perform elbow wrist and hand range of motion to avoid stiffness. No range of motion
of the left shoulder. Nonweightbearing left upper extremity. Surgery scheduled for 02/06.
Right brain astrocytoma: Reoccurrence October 2022 with chemo and radiation with worsening of left sided symptoms causing ADL and ambulatory dysfunction.
Seizure: Decadron 1 mg daily lacosamide 200 mg twice daily, Keppra 1500 twice daily. Clobazam 2.5 mg/ML suspension, 5 mg every afternoon. seizure precautions
Left non-dominant spastic hemiparesis: PT/OT.- Baclofen 10 mg 3 times daily. Had OP EMG. Scheduled for Botox OP next week.
Spasticity: Baclofen 10mg tid
HTN: Amlodipine 10 mg, lisinopril 60 mg, HCTZ 25 mg, potassium chloride 40 meq twice, metoprolol succinate 25 mg daily.
Macrocytic Anemia: Likely multifactorial.� Has been low, stable in 11 range, monitor.
FEN: Regular diet
Anxiety: Psychology consulted.� , Lexapro 10 mg daily as needed.
Skin: monitor for pressure sores/rashes/lesions.
Pain: Ibuprofen 400 mg every 6 as needed, Dilaudid 0.5 mg IV every 3 hours as needed, Tylenol 650 every 4 hours as needed as needed.
Bowel: MiraLAX 17 g, Senokot�S1 tab twice daily as needed, Dulcolax 10 mg rectal every 48 hours as needed
Bladder: Time void, PVRs, PRN straight cath.
Alcohol Abuse: Alcohol cessation education, offering of outpatient alcohol abuse program, Thiamine and folate
GI Prophylaxis: Pantoprazole 40 mg daily
Pulmonary Embolism history: Eliquis, Incentive spirometry
Safety: Continue to reinforce assistance with all transfers.
Code Status:�DNR
Dispo�(date/plan/equipment needs): Home with family care.
Destination: SNF
Summary recommendation:
Patient with history of brain surgery and left hemiparesis functional at wheelchair level for the past 2 months with recent left clavicular fracture currently functional at Min assist-bed mobility, max assist x 2-transfers, attempted stand pivot
transfer and unable to complete transfer despite max assist x 2. Unable to advance right lower extremity. Was at [facility] for rehabilitation x 20 days with recent discharge approximately 2-3 weeks? would benefit from PT/OT at SNF facility to
improve strength and healing.
Left Clavicle fracture: displaced distal third comminuted clavicle fracture.Utilize sling for comfort when upright. May take breaks from sling when at rest. May perform elbow wrist and hand range of motion to avoid stiffness. No range of motion
of the left shoulder. Nonweightbearing left upper extremity. Surgery scheduled for 02/06.
Left non-dominant spastic hemiparesis: PT/OT.- Baclofen 10 mg 3 times daily. Scheduled for Botox OP next week.
HTN: Amlodipine 10 mg, lisinopril 60 mg, HCTZ 25 mg, potassium chloride 40 meq twice, metoprolol succinate 25 mg daily.
Pain: Ibuprofen 400 mg every 6 as needed, Dilaudid 0.5 mg IV every 3 hours as needed, Tylenol 650 every 4 hours as needed as needed.
Bowel: MiraLAX 17 g, Senokot�S 1 tab twice daily as needed, Dulcolax 10 mg rectal every 48 hours as needed
Bladder: Time void, PVRs, PRN straight cath.
Alcohol Abuse: Alcohol cessation education, offering of outpatient alcohol abuse program, Thiamine and folate
GI Prophylaxis: Pantoprazole 40 mg daily
Pulmonary Embolism history: Eliquis, Incentive spirometry
Safety: Continue to reinforce assistance with all transfers.
Attending Statement: I saw and examined the patient today.� Reviewed care plan with patient, therapy, nursing, and physician therapy administrative assistant.� I agree with the above subjective and physical exam, and plan as documented by SAW Brumfield with adjustments
made as necessary.
--- NOTE | 2024-02-06 09:11 | W.PN.UPDATE ---
Update Note
Progress Note Update
Patient comfortable this morning enjoying breakfast. 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 Left shoulder ecchymotic. Baseline weakness in his LUE Due to
astrocytoma. DNVI LUE. Remains in sling. X-rays and CT scan show significantly displaced distal third left clavicular fracture. Discussed at length with the patient and his partner, Day, via telephone. given his overall clinical picture it
would be my recommendation to proceed with surgical correction. Patient and his partner are in agreement. However, Patient scheduled for important brain MRI this month to assess tumor. They will be touching base with [facility] to make sure that DH
machine is acceptable for scan. Brain MRI ordered. if they would rather him have MRI at [facility] facility we will look to arrange discharge with expedited brain MRI and follow-up outpatient to arrange for elective left clavicle ORIF under the
direction of Dr. Hernandez. Discussed with both Drs. Jimenez and David. patient tentatively posted to the OR schedule for tomorrow For left clavicle ORIF.. Surgical and blood consents have been signed and placed on the patient's chart.
Operative site has been marked as the left clavicle. Patient will be NPO pMN tonite. ABX and irrigation products on-call. T&S requested. Will continue to follow
ADDENDUM: Patient's oncologist would like patient to have updated brain MRI at a [facility] facility. will cancel MRI order. We would be okay with him proceeding with updated brain MRI 2 months postop if he would like to stay and have his clavicle
fixed tomorrow. Dr. Jimenez will speak with the patient again. Patient's last brain MRI was 3 months ago, so it sounds like this next MRI is important to assess the tumor.Decision ultimately up to the patient and his oncologist. Would be
reasonable to discharge the patient home or rehab with an (hopeful) expedited, updated, brain MRI, and follow-up with us in about a week to schedule his clavicle ORIF electively. If oncologist okay pushing off brain MRI 2 months we will proceed with
surgery tomorrow as scheduled
[2024-02-06] MEDS: MOTRIN 400 MG PO (12:23)
--- NOTE | 2024-02-06 14:59 | CM ---
Discharge Plan of Care: Recommended for Acute Rehab. Awaiting Physiatry consult. Patient preferences are [facility] and [facility]. Referrals sent.
[2024-02-06 15:05] VITALS: BP 137/85
--- NOTE | 2024-02-06 16:15 | W.PN.HOSP.TC ---
Today's Communication/Plan
-
Plan is for surgical repair of left clavicular fracture on 02/06.
Assessment / Plan
Assessment / Plan
58 man with chronic L sided weakness, now with broken clavicle. He can no longer transfer independently.Attempted to get up to urinate early Saturday morning (02/03) fell with resultant fx
Impression:
Status post mechanical fall with left clavicular fracture.
Urine retention
Conditions prior to admission:
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
� Chronic left hemiparesis.
Seizure disorder.
Essential hypertension
Plan:
Left clavicular fracture.
Orthopedic input appreciated
Plan is for surgical repair on 02/06.
Physical therapy/physiatry assessment
Patient with left hemiparesis and now clavicular fracture, of could be considered for acute rehab.
Astrocytoma.
Status post resection 2021
Chronic left hemiparesis
Patient will need MRI of the brain for restaging. As per discussion with primary oncologist at [facility], MRI should be done at the primary facility and could be postponed for the next 2 to 3 months after hardware placement.
On dexamethasone
Continue Cardiolite and baclofen.
Seizure disorder
Continue Keppra, lacosamide, clobazam
Essential hypertension
Continue lisinopril, amlodipine, HCTZ. Monitor sodium level while on HCTZ
Full code.
Anticipated Discharge: 24 - 48 hours
Subjective/Interval History
-
Date of Service: February 06, 2024
Objective Data
-
Vital Signs:
Vital Signs
Temp Pulse Resp BP Pulse Ox
97.7 F 62 18 137/85 95
02/06/24 15:05 02/06/24 15:05 02/06/24 15:05 02/06/24 15:05 02/06/24 15:05
I&O
02/05/24 02/06/24 02/07/24
06:59 06:59 06:59
Intake Total 840 / 840 1160 / 1160
Output Total 200 / 200 1450 / 1450
Balance 640 / 640 -290 / -290
Physical Exam
-
General: Well Developed and No Apparent Distress
HEENT: Normocephalic, Atraumatic and Moist Mucous Membranes
Respiratory: Clear to Auscultation
Cardiac: Regular Rhythm and S1/S2; Negative Murmur, Rub or Gallop
GI: Soft, Nontender, Nondistended and Normal Bowel Sounds; Negative Organomegaly
Rectal: Deferred by Provider
Musculoskeletal: No Clubbing, No Cyanosis and No Edema
Skin: Negative Rash
Neuro: Awake, Alert, Oriented, AO x 3 and Other (Left hemiparesis)
[2024-02-06] MEDS: NON-FORMULARY ITEM 2.5 MG PO (17:29)
[2024-02-06] MEDS: PROTONIX 40 MG PO (17:29)
[2024-02-06] MEDS: COLACE 100 MG PO (17:30)
[2024-02-06] MEDS: ZESTRIL 60 MG PO (17:30)
[2024-02-06 23:22] VITALS: BP 141/82
[2024-02-07] VITALS (12 sets, daily range): BP systolic 115–150; BP diastolic 73–94
--- NOTE | 2024-02-07 07:27 | W.PN.UPDATE ---
Update Note
Progress Note Update
Mr. Nino is resting comfortably this morning. He reports some mild pain in the left shoulder. Plan is for OR later today for ORIF left clavicle under the direction of Dr. Hernandez. Remain NPO. All of his questions were answered. Will continue to
follow along.
[2024-02-07] MEDS: KCL 40 MEQ PO ×2 (08:29→21:10)
[2024-02-07] MEDS: VIMPAT 200 MG PO ×2 (08:29→21:11)
[2024-02-07] MEDS: KEPPRA 1500 MG PO ×2 (08:29→21:10)
[2024-02-07] MEDS: NORVASC 10 MG PO (08:30)
[2024-02-07] MEDS: MAG-TAB SR 84 MG PO (08:31)
[2024-02-07] MEDS: ORETIC 25 MG PO (08:31)
[2024-02-07] MEDS: LIORESAL 10 MG PO ×2 (08:31→21:11)
[2024-02-07] MEDS: TOPROL XL 25 MG PO (08:31)
[2024-02-07] MEDS: LEXAPRO 10 MG PO (08:31)
[2024-02-07] MEDS: DECADRON 1 MG PO (08:32)
--- NOTE | 2024-02-07 15:56 | CM ---
Therapy recommendation for acute rehab. Referrals previously forwarded. PM&R consult completed and recommended SNF. Will discuss with patient and get preferences.
--- NOTE | 2024-02-07 17:02 | W.PN.HOSP.TC ---
Today's Communication/Plan
-
OR
Assessment / Plan
Assessment / Plan
58 man with chronic L sided weakness, now with broken clavicle. He can no longer transfer independently.Attempted to get up to urinate early Tuesday morning (02/03) fell with resultant fx
Impression:
Status post mechanical fall with left clavicular fracture.
Urine retention
Conditions prior to admission:
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
� Chronic left hemiparesis.
Seizure disorder.
Essential hypertension
Plan:
Left clavicular fracture.
Orthopedic input appreciated
Plan is for surgical repair on 02/06.
Physical therapy/physiatry assessment
Patient with left hemiparesis and now clavicular fracture, of could be considered for acute rehab.
Astrocytoma.
Status post resection 2021
Chronic left hemiparesis
Patient will need MRI of the brain for restaging. As per discussion with primary oncologist at [facility], MRI should be done at the primary facility and could be postponed for the next 2 to 3 months after hardware placement.
On dexamethasone
Continue Cardiolite and baclofen.
Seizure disorder
Continue Keppra, lacosamide, clobazam
Essential hypertension
Continue lisinopril, amlodipine, HCTZ. Monitor sodium level while on HCTZ
Full code.
Anticipated Discharge: 24 - 48 hours
Subjective/Interval History
-
Date of Service: February 07, 2024
Objective Data
-
Vital Signs:
Vital Signs
Temp Pulse Resp BP Pulse Ox
98.1 F 62 16 135/90 93
02/07/24 15:00 02/07/24 15:00 02/07/24 15:00 02/07/24 15:00 02/07/24 15:00
I&O
02/06/24 02/07/24 02/08/24
06:59 06:59 06:59
Intake Total 1160 / 1160 1800 / 1800
Output Total 1450 / 1450 650 / 650
Balance -290 / -290 1150 / 1150
Physical Exam
-
General: Well Developed and No Apparent Distress
HEENT: Normocephalic, Atraumatic and Moist Mucous Membranes
Respiratory: Clear to Auscultation
Cardiac: Regular Rhythm and S1/S2; Negative Murmur, Rub or Gallop
GI: Soft, Nontender, Nondistended and Normal Bowel Sounds; Negative Organomegaly
Rectal: Deferred by Provider
Musculoskeletal: No Clubbing, No Cyanosis and No Edema
Skin: Negative Rash
Neuro: Other (Left hemiparesis)
[2024-02-07] MEDS: DILAUDID 0.5 MG IV ×2 (18:21→18:34)
[2024-02-07] MEDS: NORMOSOL-R 1000 IV (18:32)
[2024-02-07] MEDS: LIORESAL PO (19:21)
--- NOTE | 2024-02-07 19:43 | PTCARENOTE ---
Received pt back to 2N with WALL CLEANER's at bedside, 2Lo2, VSS, pt resting comfortably in bed with family at bedside at this time.
[2024-02-07] MEDS: ZESTRIL 60 MG PO (19:55)
[2024-02-07] MEDS: COLACE 100 MG PO (19:57)
[2024-02-07] MEDS: PROTONIX 40 MG PO (19:57)
[2024-02-07] MEDS: ASPIRIN 325 MG PO (20:11)
[2024-02-07] MEDS: NON-FORMULARY ITEM 5 MG PO (20:26)
[2024-02-07] MEDS: VIBRAMYCIN 100 MG PO (21:10)
[2024-02-08 03:05] VITALS: BP 116/68
[2024-02-08] MEDS: NORMOSOL-R 1000 IV ×2 (05:02→15:01)
[2024-02-08 07:05] VITALS: BP 144/84
--- NOTE | 2024-02-08 07:33 | W.PN.ORTHO ---
Today's Communication / Plan
-
58 yo M POD1 ORIF left clavicle fracture
--Non weight bearing to left upper extremity. Sling for immobilization. We appreciate the assistance of PT/OT while patient admitted.
--ASA 325 mg daily x4 weeks for DVT ppx or per primary.
--Pain control per primary. Patient doesn't tolerate oxycodone, but reports he has tolerated Tramadol in the past. Could consider this once transitioned off IV pain medications. Ice prn for pain and edema control.
--Maintain surgical dressing until post-op visit. Follow up outpatient at 2 weeks for staple removal and repeat x-rays.
--Doxycycline 100 mg BID x3 days post-op.
--Case management consult for dc planning.
Assessment
.
Distal Motor Intact: Yes
Dressing:
Clean, dry and intact.
Plan
.
Surgery / Date: ORIF L clavicle, David, 02/06
DVT Prophylaxis: Aspirin
Activity:
Out of bed.
PT/OT
Subjective
.
.:
Mr. Nino is POD1 following his ORIF left distal clavicle fracture performed by Dr. Hernandez. He reports he has been doing well overall, and his pain was well controlled overnight. He has no questions or concerns at this time.
Vital Signs and Labs
.
Vital Signs and Labs:
Lab Results
02/04/24 11:38
02/04/24 11:38
Temp Pulse Resp BP Pulse Ox
97.3 F 72 14 116/68 93
02/08/24 03:05 02/08/24 03:05 02/08/24 03:05 02/08/24 03:05 02/08/24 05:10
Physical Exam
-
Directed exam of the left shoulder reveals surgical dressing with slight strikethrough of blood, otherwise clean, dry and intact. No significant tenderness to palpation about the shoulder. Patient able to wiggle fingers, flex and extend wrist.
Sensation intact to light touch. Capillary refill <2 seconds.
[2024-02-08] MEDS: KEPPRA 1500 MG PO ×2 (08:40→20:12)
[2024-02-08] MEDS: DECADRON 1 MG PO (08:40)
[2024-02-08] MEDS: KCL 40 MEQ PO ×2 (08:41→20:12)
[2024-02-08] MEDS: VIBRAMYCIN 100 MG PO ×2 (08:41→20:12)
[2024-02-08] MEDS: VIMPAT 200 MG PO ×2 (08:41→20:12)
[2024-02-08] MEDS: NORVASC 10 MG PO (08:41)
[2024-02-08] MEDS: MAG-TAB SR 84 MG PO (08:41)
[2024-02-08] MEDS: ASPIRIN 325 MG PO (08:41)
[2024-02-08] MEDS: LIORESAL 10 MG PO ×3 (08:41→21:29)
[2024-02-08] MEDS: LEXAPRO 10 MG PO (08:42)
[2024-02-08] MEDS: ORETIC 25 MG PO (08:42)
[2024-02-08] MEDS: TOPROL XL 25 MG PO (08:42)
[2024-02-08] MEDS: DILAUDID 0.5 MG IV (08:54)
[2024-02-08 12:51] VITALS: BP 144/92; PULSE 81; O2SAT 96
[2024-02-08 12:53] VITALS: BP 144/92; PULSE 81; O2SAT 96
--- NOTE | 2024-02-08 12:54 | CM ---
POD#1 ORIF L Clavicle. Discharge Plan of Care: PM&R recommending SNF for STR. Received preferences from patient and referrals sent.
[2024-02-08 15:05] VITALS: BP 139/91
--- NOTE | 2024-02-08 17:17 | W.PN.HOSP.TC ---
Today's Communication/Plan
-
Physical therapy
Pain control with attempt to wean off IV narcotics.
[facility]
Assessment / Plan
Assessment / Plan
58 man with chronic L sided weakness, now with broken clavicle. He can no longer transfer independently.Attempted to get up to urinate early Tuesday morning (02/03) fell with resultant fx
Impression:
Status post mechanical fall with left clavicular fracture.
Conditions prior to admission:
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
� Chronic left hemiparesis.
Seizure disorder.
Essential hypertension
Plan:
Left clavicular fracture.
Orthopedic input appreciated
Status post ORIF 02/06
DVT prophylaxis with aspirin.
Nonweightbearing left upper extremity with sling nebulization. PT OT
Pain control with addition of tramadol with attempt to wean off of IV hydromorphone.
Physical therapy/physiatry assessment
Astrocytoma.
Status post resection 2021
Chronic left hemiparesis
Patient will need MRI of the brain for restaging. As per discussion with primary oncologist at [facility], MRI should be done at the primary facility and could be postponed for the next 2 to 3 months after hardware placement.
On dexamethasone
Continue Cardiolite and baclofen.
Seizure disorder
Continue Keppra, lacosamide, clobazam
Essential hypertension
Continue lisinopril, amlodipine, HCTZ. Monitor sodium level while on HCTZ
Full code.
Anticipated Discharge: 24 - 48 hours
Subjective/Interval History
-
Date of Service: February 08, 2024
Objective Data
-
Vital Signs:
Vital Signs
Temp Pulse Resp BP Pulse Ox
97.5 F 69 18 144/84 95
02/08/24 07:05 02/08/24 08:42 02/08/24 07:05 02/08/24 08:42 02/08/24 07:05
I&O
02/07/24 02/08/24 02/09/24
06:59 06:59 06:59
Intake Total 1800 / 1800 1393 / 1393
Output Total 650 / 650 650 / 650
Balance 1150 / 1150 743 / 743
Physical Exam
-
General: Well Developed and No Apparent Distress
HEENT: Normocephalic, Atraumatic and Moist Mucous Membranes
Respiratory: Clear to Auscultation
Cardiac: Regular Rhythm and S1/S2; Negative Murmur, Rub or Gallop
GI: Soft, Nontender, Nondistended and Normal Bowel Sounds; Negative Organomegaly
Rectal: Deferred by Provider
Musculoskeletal: No Clubbing, No Cyanosis and No Edema
Skin: Negative Rash
Neuro: Other (Left hemiparesis)
[2024-02-08] MEDS: NON-FORMULARY ITEM 5 MG PO (17:47)
[2024-02-08] MEDS: COLACE 100 MG PO (17:54)
[2024-02-08] MEDS: PROTONIX 40 MG PO (17:54)
[2024-02-08] MEDS: ZESTRIL 60 MG PO (17:55)
[2024-02-08] MEDS: ULTRAM 50 MG PO (18:44)
[2024-02-08] MEDS: TYLENOL 650 MG PO (21:01)
[2024-02-08 23:33] VITALS: BP 142/85
[2024-02-09] MEDS: NORMOSOL-R 1000 IV (01:00)
[2024-02-09] MEDS: ULTRAM 50 MG PO ×3 (01:01→21:48)
[2024-02-09 07:05] VITALS: BP 131/88
--- NOTE | 2024-02-09 07:32 | W.PN.ORTHO ---
Today's Communication / Plan
-
Sling with nonweightbearing left upper extremity
PT/OT
Aspirin for DVT prophylactics
Skin clip removal 2 weeks postop
shelter facility once medically stable
Orthopedics to sign off for now
Assessment
.
Distal Motor Intact: Yes
Dressing:
Clean, dry and intact.
Plan
.
Surgery / Date: ORIF L clavicle, R[place], 02/06
DVT Prophylaxis: Aspirin
Activity:
Out of bed.
PT/OT
Discharge Plan: SNF
Subjective
.
.:
Patient resting comfortably.
Vital Signs and Labs
.
Vital Signs and Labs:
Lab Results
02/04/24 11:38
02/04/24 11:38
Temp Pulse Resp BP Pulse Ox
97.7 F 67 18 142/85 95
02/08/24 23:33 02/08/24 23:33 02/08/24 23:33 02/08/24 23:33 02/09/24 01:42
[2024-02-09] MEDS: KEPPRA 1500 MG PO ×2 (09:10→19:16)
[2024-02-09] MEDS: VIMPAT 200 MG PO ×2 (09:11→19:16)
[2024-02-09] MEDS: MAG-TAB SR 84 MG PO (09:11)
[2024-02-09] MEDS: VIBRAMYCIN 100 MG PO ×2 (09:11→19:14)
[2024-02-09] MEDS: LIORESAL 10 MG PO ×3 (09:12→21:47)
[2024-02-09] MEDS: KCL 40 MEQ PO ×2 (09:13→19:14)
[2024-02-09] MEDS: ORETIC 25 MG PO (09:13)
[2024-02-09] MEDS: ASPIRIN 325 MG PO (09:14)
[2024-02-09] MEDS: LEXAPRO 10 MG PO (09:14)
[2024-02-09] MEDS: DECADRON 1 MG PO (09:14)
[2024-02-09] MEDS: NORVASC 10 MG PO (09:14)
[2024-02-09] MEDS: TOPROL XL 25 MG PO (09:14)
[2024-02-09 09:27] VITALS: BP 131/88
[2024-02-09] MEDS: MOTRIN 400 MG PO (10:52)
--- NOTE | 2024-02-09 14:45 | CM ---
Discharge Plan of Care: Not accepted to acute rehab via PM&R consult. Recommend SNF. Referrals previously forwarded. Need to determine bed availability on day of discharge.
[2024-02-09 15:00] VITALS: BP 133/86
[2024-02-09 15:47] VITALS: BP 124/83; PULSE 66
[2024-02-09 15:50] VITALS: BP 124/83; PULSE 66
[2024-02-09] MEDS: NON-FORMULARY ITEM 5 MG PO (17:22)
[2024-02-09] MEDS: ZESTRIL 60 MG PO (17:27)
[2024-02-09] MEDS: PROTONIX 40 MG PO (17:27)
[2024-02-09] MEDS: COLACE 100 MG PO (17:32)
--- NOTE | 2024-02-09 18:32 | W.PN.HOSP.TC ---
Today's Communication/Plan
-
Physical therapy
Placement to [facility] facility pending bed availability.
Assessment / Plan
Assessment / Plan
58 man with chronic L sided weakness, now with broken clavicle. He can no longer transfer independently.Attempted to get up to urinate early Tuesday morning (02/03) fell with resultant fx
Impression:
Status post mechanical fall with left clavicular fracture.
Conditions prior to admission:
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
� Chronic left hemiparesis.
Seizure disorder.
Essential hypertension
Plan:
Left clavicular fracture.
Orthopedic input appreciated
Status post ORIF 02/06
DVT prophylaxis with aspirin.
Nonweightbearing left upper extremity with sling nebulization. PT OT
Pain control with addition of tramadol with attempt to wean off of IV hydromorphone.
Physical therapy/physiatry assessment
Astrocytoma.
Status post resection 2021
Chronic left hemiparesis
Patient will need MRI of the brain for restaging. As per discussion with primary oncologist at [facility], MRI should be done at the primary facility and could be postponed for the next 2 to 3 months after hardware placement.
On dexamethasone
Continue Cardiolite and baclofen.
Seizure disorder
Continue Keppra, lacosamide, clobazam
Essential hypertension
Continue lisinopril, amlodipine, HCTZ. Monitor sodium level while on HCTZ
Full code.
Anticipated Discharge: 24 - 48 hours
Subjective/Interval History
-
Date of Service: February 09, 2024
Objective Data
-
Vital Signs:
Vital Signs
Temp Pulse Resp BP Pulse Ox
97.6 F 58 16 136/93 98
02/09/24 15:00 02/09/24 17:27 02/09/24 15:00 02/09/24 17:27 02/09/24 15:00
I&O
02/08/24 02/09/24 02/10/24
06:59 06:59 06:59
Intake Total 1393 / 1393 1620 / 1620 480 / 480
Output Total 650 / 650 800 / 800 1375 / 1375
Balance 743 / 743 820 / 820 -895 / -895
Physical Exam
-
General: Well Developed and No Apparent Distress
HEENT: Normocephalic, Atraumatic and Moist Mucous Membranes
Respiratory: Clear to Auscultation
Cardiac: Regular Rhythm and S1/S2; Negative Murmur, Rub or Gallop
GI: Soft, Nontender, Nondistended and Normal Bowel Sounds; Negative Organomegaly
Rectal: Deferred by Provider
Musculoskeletal: No Clubbing, No Cyanosis and No Edema
Skin: Negative Rash
Neuro: Nonfocal/Grossly Intact
[2024-02-09 23:34] VITALS: BP 147/86
[2024-02-10 07:15] VITALS: BP 148/90
[2024-02-10] MEDS: NORVASC 10 MG PO (07:48)
[2024-02-10] MEDS: TOPROL XL 25 MG PO (07:48)
[2024-02-10] MEDS: VIBRAMYCIN 100 MG PO (07:48)
[2024-02-10] MEDS: KCL 40 MEQ PO ×2 (07:49→20:37)
[2024-02-10] MEDS: VIMPAT 200 MG PO ×2 (07:49→19:55)
[2024-02-10] MEDS: LEXAPRO 10 MG PO (07:49)
[2024-02-10] MEDS: ORETIC 25 MG PO (07:49)
[2024-02-10] MEDS: MOTRIN 400 MG PO (07:49)
[2024-02-10] MEDS: ASPIRIN 325 MG PO (07:49)
[2024-02-10] MEDS: DECADRON 1 MG PO (07:50)
[2024-02-10] MEDS: MAG-TAB SR 84 MG PO (07:50)
[2024-02-10] MEDS: KEPPRA 1500 MG PO ×2 (07:50→19:55)
[2024-02-10] MEDS: LIORESAL 10 MG PO ×3 (07:50→20:37)
[2024-02-10 12:00] VITALS: BP 130/84; PULSE 67; O2SAT 96
[2024-02-10] MEDS: DILAUDID 0.5 MG IV ×2 (12:13→22:37)
--- NOTE | 2024-02-10 12:57 | W.DS.TRANS ---
DC Summary - Lap Checker
-
Discharge Instructions:
Discharge Diagnosis/Procedures Impression:
Status post mechanical fall with left clavicular
fracture.
Conditions prior to admission:
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
� Chronic left hemiparesis.
Seizure disorder.
Essential hypertension
Instructions:
Stand-Alone Forms:
Changes to Home Medications: Yes
Discharge Medications:
DC Medications w/original date entered in [address]
escitalopram oxalate 10 mg tablet 10 mg PO DAILY Mental Health/Anxiety 11/04/16
cabergoline 0.5 mg tablet 0.5 mg PO TUFR Endocrine disorder 05/30/23
pantoprazole 40 mg tablet,delayed release 40 mg PO QPM Gastrointestinal Issue 05/30/23
lacosamide 200 mg tablet 200 mg PO BID #60 tabs 06/15/23
levetiracetam 750 mg tablet 1,500 mg PO BID SEIURE 10/06/23
lisinopril 40 mg tablet 60 mg PO QPM Blood Pressure 10/06/23
amlodipine 10 mg tablet 10 mg PO DAILY #30 tabs 10/08/23
baclofen 10 mg tablet 10 mg PO TID Muscle Spasms 02/04/24
clobazam 2.5 mg/mL oral suspension 5 mg PO QPM Seizures 02/04/24
dexamethasone 2 mg tablet 1 mg PO DAILY Anti-Inflammatory 02/04/24
docusate sodium 100 mg capsule 100 mg PO QPM STOOL SOFTENER 02/04/24
hydrochlorothiazide 25 mg tablet 25 mg PO DAILY Fluid Retention/Swelling 02/04/24
magnesium oxide 400 mg (241.3 mg magnesium) tablet 400 mg PO DAILY Supplement 02/04/24
potassium chloride 20 mEq tablet,extended release(part/cryst) 40 meq PO BID Supplement 02/04/24
aspirin 325 mg tablet 325 mg PO DAILY #30 tabs 02/10/24
tramadol 50 mg tablet 50 mg PO Q6HPRN PRN severe pain #20 tabs 02/10/24
Home Medication Changes
ASA for DVT prophylaxis
Pending Results: No
[2024-02-10 14:04] VITALS: BP 130/84; PULSE 67
--- NOTE | 2024-02-10 14:45 | CM ---
Addendum entered by Cynthia Rodriguez 02/10/24 14:52:
Government Program Manager will need to contact R liaison @ #[phone] in the morning for time facility can accept;
transport will need to be coordinated; patient has no one to transport him
Addendum entered by Cynthia Rodriguez 02/10/24 14:47:
Plan: Discharge to short term [facility] at [facility] on 02/11/24
Report # [phone]
fax # [phone]
Original Note:
[facility] will have a bed tomorrow; Attending and patient aware
Plan: Discharge to short term [facility] at [facility] for rehab tomorrow
[2024-02-10 15:05] VITALS: BP 144/89
[2024-02-10] MEDS: NON-FORMULARY ITEM 5 MG PO (17:25)
[2024-02-10] MEDS: ZESTRIL 60 MG PO (17:26)
--- NOTE | 2024-02-10 17:55 | W.PN.HOSP.TC ---
Today's Communication/Plan
-
Disposition efforts to [facility] facility for
Assessment / Plan
Assessment / Plan
58 man with chronic L sided weakness, now with broken clavicle. He can no longer transfer independently.Attempted to get up to urinate early Tuesday morning (02/03) fell with resultant fx
Impression:
Status post mechanical fall with left clavicular fracture.
Conditions prior to admission:
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
� Chronic left hemiparesis.
Seizure disorder.
Essential hypertension
Plan:
Left clavicular fracture.
Orthopedic input appreciated
Status post ORIF 02/06
DVT prophylaxis with aspirin.
Nonweightbearing left upper extremity with sling nebulization. PT OT
Pain control with addition of tramadol with attempt to wean off of IV hydromorphone.
Physical therapy/physiatry assessment
Astrocytoma.
Status post resection 2021
Chronic left hemiparesis
Patient will need MRI of the brain for restaging. As per discussion with primary oncologist at [facility], MRI should be done at the primary facility and could be postponed for the next 2 to 3 months after hardware placement.
On dexamethasone
Continue Cardiolite and baclofen.
Seizure disorder
Continue Keppra, lacosamide, clobazam
Essential hypertension
Continue lisinopril, amlodipine, HCTZ. Monitor sodium level while on HCTZ
Full code.
Anticipated Discharge: Within 24 hours
Subjective/Interval History
-
Date of Service: February 10, 2024
Objective Data
-
Vital Signs:
Vital Signs
Temp Pulse Resp BP Pulse Ox
97.9 F 68 18 128/86 97
02/10/24 15:05 02/10/24 17:26 02/10/24 15:05 02/10/24 17:26 02/10/24 15:05
I&O
02/09/24 02/10/24 02/11/24
06:59 06:59 06:59
Intake Total 1620 / 1620 720 / 720 840 / 840
Output Total 800 / 800 2200 / 2200 1250 / 1250
Balance 820 / 820 -1480 / -1480 -410 / -410
Physical Exam
-
General: Well Developed and No Apparent Distress
HEENT: Normocephalic, Atraumatic and Moist Mucous Membranes
Respiratory: Clear to Auscultation
Cardiac: Regular Rhythm and S1/S2; Negative Murmur, Rub or Gallop
GI: Soft, Nontender, Nondistended and Normal Bowel Sounds; Negative Organomegaly
Rectal: Deferred by Provider
Musculoskeletal: No Clubbing, No Cyanosis and No Edema
Skin: Negative Rash
Neuro: Nonfocal/Grossly Intact
[2024-02-10] MEDS: PROTONIX 40 MG PO (18:36)
[2024-02-10] MEDS: MIRALAX 17 GRAMS PO (18:41)
[2024-02-10] MEDS: SENOKOT-S 1 TABLET PO (18:41)
[2024-02-10] MEDS: COLACE PO (18:42)
[2024-02-10] MEDS: ATIVAN 1 MG IV (20:05)
[2024-02-10] MEDS: NSS (PRESERVATIVE FREE) 0.5 ML IV (20:06)
--- NOTE | 2024-02-10 21:15 | PTCARENOTE ---
Pt with left leg and arm twitching and stiffness reporting having a seizure. Episode last over 3 min. OPTICAL ENGINEER made aware. STAT Ativan IV ordered
[2024-02-10] MEDS: ULTRAM 50 MG PO (21:27)
[2024-02-10 23:39] VITALS: BP 140/93
[2024-02-11 07:05] VITALS: BP 141/96
[2024-02-11] MEDS: ORETIC 25 MG PO (08:17)
[2024-02-11] MEDS: DECADRON 1 MG PO (08:17)
[2024-02-11] MEDS: VIMPAT 200 MG PO ×2 (08:18→21:15)
[2024-02-11] MEDS: KEPPRA 1500 MG PO ×2 (08:18→21:14)
[2024-02-11] MEDS: LEXAPRO 10 MG PO (08:18)
[2024-02-11] MEDS: KCL 40 MEQ PO ×2 (08:18→21:15)
[2024-02-11] MEDS: MAG-TAB SR 84 MG PO (08:18)
[2024-02-11] MEDS: ASPIRIN 325 MG PO (08:18)
[2024-02-11] MEDS: NORVASC 10 MG PO (08:18)
[2024-02-11] MEDS: LIORESAL 10 MG PO ×3 (08:18→21:16)
[2024-02-11] MEDS: ULTRAM 50 MG PO (08:24)
--- NOTE | 2024-02-11 09:39 | W.DS.TRANS ---
DC Summary - Flat Knitter
-
Discharge Instructions:
Discharge Diagnosis/Procedures Impression:
Status post mechanical fall with left clavicular
fracture.
Conditions prior to admission:
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
� Chronic left hemiparesis.
Seizure disorder.
Essential hypertension
Instructions:
Stand-Alone Forms:
Changes to Home Medications: Yes
Discharge Medications:
DC Medications w/original date entered in [employer]
escitalopram oxalate 10 mg tablet 10 mg PO DAILY Mental Health/Anxiety 11/04/16
cabergoline 0.5 mg tablet 0.5 mg PO TUFR Endocrine disorder 05/30/23
pantoprazole 40 mg tablet,delayed release 40 mg PO QPM Gastrointestinal Issue 05/30/23
lacosamide 200 mg tablet 200 mg PO BID #60 tabs 06/15/23
levetiracetam 750 mg tablet 1,500 mg PO BID SEIURE 10/06/23
lisinopril 40 mg tablet 60 mg PO QPM Blood Pressure 10/06/23
amlodipine 10 mg tablet 10 mg PO DAILY #30 tabs 10/08/23
baclofen 10 mg tablet 10 mg PO TID Muscle Spasms 02/04/24
clobazam 2.5 mg/mL oral suspension 5 mg PO QPM Seizures 02/04/24
dexamethasone 2 mg tablet 1 mg PO DAILY Anti-Inflammatory 02/04/24
docusate sodium 100 mg capsule 100 mg PO QPM STOOL SOFTENER 02/04/24
hydrochlorothiazide 25 mg tablet 25 mg PO DAILY Fluid Retention/Swelling 02/04/24
magnesium oxide 400 mg (241.3 mg magnesium) tablet 400 mg PO DAILY Supplement 02/04/24
potassium chloride 20 mEq tablet,extended release(part/cryst) 40 meq PO BID Supplement 02/04/24
aspirin 325 mg tablet 325 mg PO DAILY #30 tabs 02/10/24
oxycodone 5 mg capsule 5 mg PO Q8H PRN Pain #14 caps 02/11/24
Home Medication Changes
Oxycodone added for pain control
Pending Results: No
--- NOTE | 2024-02-11 09:40 | W.PN.HOSP.TC ---
Today's Communication/Plan
-
Monitor for recurrent seizure.
Stop Ultram.
Continue current antiepileptic regimen.
Assessment / Plan
Assessment / Plan
58 man with chronic L sided weakness, now with broken clavicle. He can no longer transfer independently.Attempted to get up to urinate early Tuesday morning (02/03) fell with resultant fx
Impression:
Status post mechanical fall with left clavicular fracture.
Conditions prior to admission:
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
� Chronic left hemiparesis.
Seizure disorder.
Essential hypertension
Plan:
Left clavicular fracture.
Orthopedic input appreciated
Status post ORIF 02/06
DVT prophylaxis with aspirin.
Nonweightbearing left upper extremity with sling nebulization. PT OT
Pain control with oxycodone. Ultram has been discontinued given risk for breakthrough seizure.
Physical therapy/physiatry assessment
Astrocytoma.
Status post resection 2021
Chronic left hemiparesis
Patient will need MRI of the brain for restaging. As per discussion with primary oncologist at [facility], MRI should be done at the primary facility and could be postponed for the next 2 to 3 months after hardware placement.
On dexamethasone
Continue Cardiolite and baclofen.
Seizure disorder
Episode of seizure on night 02/09 - 02/10.
Suspect breakthrough seizure after administration of Ultram which potentially reducing threshold for seizures. Ultram discontinued. Will be replaced by oxycodone for pain control.
Continue Keppra, lacosamide, clobazam
Essential hypertension
Continue lisinopril, amlodipine, HCTZ. Monitor sodium level while on HCTZ
Full code.
Anticipated Discharge: 24 - 48 hours
Subjective/Interval History
-
Date of Service: February 11, 2024
Objective Data
-
Vital Signs:
Vital Signs
Temp Pulse Resp BP Pulse Ox
97.4 F 65 18 141/96 97
02/11/24 07:05 02/11/24 07:05 02/11/24 07:05 02/11/24 07:05 02/11/24 07:05
I&O
02/10/24 02/11/24 02/12/24
06:59 06:59 06:59
Intake Total 720 / 720 1320 / 1320
Output Total 2200 / 2200 2850 / 2850
Balance -1480 / -1480 -1530 / -1530
Physical Exam
-
General: Well Developed and No Apparent Distress
HEENT: Normocephalic, Atraumatic and Moist Mucous Membranes
Respiratory: Clear to Auscultation
Cardiac: Regular Rhythm and S1/S2; Negative Murmur, Rub or Gallop
GI: Soft, Nontender, Nondistended and Normal Bowel Sounds; Negative Organomegaly
Rectal: Deferred by Provider
Musculoskeletal: No Clubbing, No Cyanosis and No Edema
Skin: Negative Rash
Neuro: Awake, Alert, Oriented, AO x 3 and Other (Left hemiparesis)
[2024-02-11] MEDS: SENOKOT-S 1 TABLET PO ×2 (12:23→21:22)
[2024-02-11] MEDS: DULCOLAX 10 MG RECTAL (14:52)
[2024-02-11 15:10] VITALS: BP 135/87
[2024-02-11] MEDS: NON-FORMULARY ITEM 2.5 MG PO (17:30)
[2024-02-11] MEDS: PROTONIX 40 MG PO (17:31)
[2024-02-11] MEDS: COLACE 100 MG PO (17:31)
[2024-02-11] MEDS: ZESTRIL 60 MG PO (17:31)
[2024-02-11] MEDS: MIRALAX 17 GRAMS PO (21:21)
[2024-02-11 23:08] VITALS: BP 117/86
[2024-02-12 07:39] VITALS: BP 141/89
[2024-02-12] MEDS: ORETIC 25 MG PO (09:31)
[2024-02-12] MEDS: ASPIRIN 325 MG PO (09:32)
[2024-02-12] MEDS: DECADRON 1 MG PO (09:32)
[2024-02-12] MEDS: VIMPAT 200 MG PO ×2 (09:32→20:18)
[2024-02-12] MEDS: LEXAPRO 10 MG PO (09:32)
[2024-02-12] MEDS: KEPPRA 1500 MG PO ×2 (09:32→20:18)
[2024-02-12] MEDS: LIORESAL 10 MG PO ×3 (09:32→22:39)
[2024-02-12] MEDS: KCL 40 MEQ PO ×2 (09:32→20:18)
[2024-02-12] MEDS: MAG-TAB SR 84 MG PO (09:32)
[2024-02-12] MEDS: NORVASC 10 MG PO (09:32)
[2024-02-12] MEDS: SENOKOT-S 1 TABLET PO ×2 (09:36→20:30)
--- NOTE | 2024-02-12 10:18 | W.PN.HOSP.TC ---
Today's Communication/Plan
-
Bowel regimen
Discharge
Assessment / Plan
Assessment / Plan
Gen-AAOx3, NAD
HEENT-NC, AT, anicteric, clear oral mm
Neck-supple
CV-reg, no M, +S1/S2
Lungs-clear B/L
Abd-soft, NT, ND
Ext-no edema
Musculoskeletal-no cyanosis, clubbing, left upper extremity sling
Skin-warm and dry
Neuro-grossly non-focal
Psych-calm, cooperative
58 man with chronic L sided weakness, now with broken clavicle. He can no longer transfer independently.Attempted to get up to urinate early Tuesday morning (02/03) fell with resultant fx
Impression:
Status post mechanical fall with left clavicular fracture.
Conditions prior to admission:
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
� Chronic left hemiparesis.
Seizure disorder.
Essential hypertension
Plan:
Left clavicular fracture.
Orthopedic input appreciated
Status post ORIF 02/06
DVT prophylaxis with aspirin.
Nonweightbearing left upper extremity with sling nebulization. PT OT
Pain control with oxycodone. Ultram has been discontinued given risk for breakthrough seizure.
Physical therapy/physiatry assessment
Astrocytoma.
Status post resection 2021
Chronic left hemiparesis
Patient will need MRI of the brain for restaging. As per discussion with primary oncologist at [facility], MRI should be done at the primary facility and could be postponed for the next 2 to 3 months after hardware placement.
On dexamethasone
Continue Cardiolite and baclofen.
Seizure disorder
Episode of seizure on night 02/09 - 02/10.
Suspect breakthrough seizure after administration of Ultram which potentially reducing threshold for seizures. Ultram discontinued. Will be replaced by oxycodone for pain control.
Continue Keppra, lacosamide, clobazam
Essential hypertension
Continue lisinopril, amlodipine, HCTZ. Monitor sodium level while on HCTZ
Constipation -continue bowel regimen. Increase MiraLAX to twice daily. Milk of molasses enema ordered.
Full code.
Dispo -medically stable for discharge to [facility] today. Informed case management.
Anticipated Discharge: Today
Subjective/Interval History
-
Date of Service: February 12, 2024
Patient seen and examined. Complaining of constipation.
Objective Data
-
Vital Signs:
Vital Signs
Temp Pulse Resp BP Pulse Ox
97.6 F 65 16 141/89 96
02/12/24 07:39 02/12/24 09:32 02/12/24 07:39 02/12/24 09:32 02/12/24 07:39
I&O
02/11/24 02/12/24 02/13/24
06:59 06:59 06:59
Intake Total 1320 / 1320 1400 / 1400
Output Total 2850 / 2850 2150 / 2150
Balance -1530 / -1530 -750 / -750
Review of Systems
-
History Source: Patient
All other systems: Reviewed and negative
--- NOTE | 2024-02-12 10:22 | W.DS.TRANS ---
DC Summary - [employer]
-
Discharge Instructions:
Discharge Diagnosis/Procedures Impression:
Status post mechanical fall with left clavicular
fracture.
Conditions prior to admission:
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
� Chronic left hemiparesis.
Seizure disorder.
Essential hypertension
Diet Regular
Activity With assistance,As tolerated
Driving Restrictions No driving
Bathing Restrictions None
Instructions:
Stand-Alone Forms:
Changes to Home Medications: No
Discharge Medications:
DC Medications w/original date entered in [employer]
escitalopram oxalate 10 mg tablet 10 mg PO DAILY Mental Health/Anxiety 11/04/16
cabergoline 0.5 mg tablet 0.5 mg PO TUFR Endocrine disorder 05/30/23
pantoprazole 40 mg tablet,delayed release 40 mg PO QPM Gastrointestinal Issue 05/30/23
lacosamide 200 mg tablet 200 mg PO BID #60 tabs 06/15/23
levetiracetam 750 mg tablet 1,500 mg PO BID SEIURE 10/06/23
lisinopril 40 mg tablet 60 mg PO QPM Blood Pressure 10/06/23
amlodipine 10 mg tablet 10 mg PO DAILY #30 tabs 10/08/23
baclofen 10 mg tablet 10 mg PO TID Muscle Spasms 02/04/24
clobazam 2.5 mg/mL oral suspension 5 mg PO QPM Seizures 02/04/24
dexamethasone 2 mg tablet 1 mg PO DAILY Anti-Inflammatory 02/04/24
docusate sodium 100 mg capsule 100 mg PO QPM STOOL SOFTENER 02/04/24
hydrochlorothiazide 25 mg tablet 25 mg PO DAILY Fluid Retention/Swelling 02/04/24
magnesium oxide 400 mg (241.3 mg magnesium) tablet 400 mg PO DAILY Supplement 02/04/24
potassium chloride 20 mEq tablet,extended release(part/cryst) 40 meq PO BID Supplement 02/04/24
aspirin 325 mg tablet 325 mg PO DAILY #30 tabs 02/10/24
oxycodone 5 mg capsule 5 mg PO Q8H PRN Pain #14 caps 02/11/24
polyethylene glycol 3350 17 gram/dose oral powder (Gavilax) 17 g PO BID #119 grams 02/12/24
Home Medication Changes
Pending Results: No
[2024-02-12 10:49] VITALS: BP 114/60; PULSE 97; O2SAT 93
--- NOTE | 2024-02-12 13:09 | PTCARENOTE ---
Patient ordered MOM enema per MD for constipation, administered by this RN with assistance of second RN. Patient tolerated procedure, +BM after enema administration.
--- NOTE | 2024-02-12 16:27 | CM ---
Addendum entered by Jeannie Slaughter 02/13/24 10:57:
Called to check on Insurance Auth. They do not have any record of auth being initiated. This restarted auth. Pending Reference # is
[id number], Faxed records to [phone]. Call reference # [id number]. Once auth received, patient to be discharged to [facility].
Original Note:
Was held for admission to [facility] Tuesday, and then Auth was needed and started Tuesday for admission.
Auth is started and pending.
Ready for dc once auth is obtained
[2024-02-12 16:35] VITALS: BP 127/79
[2024-02-12] MEDS: ZESTRIL 60 MG PO (17:00)
[2024-02-12] MEDS: COLACE 100 MG PO (17:00)
[2024-02-12] MEDS: NON-FORMULARY ITEM 5 MG PO (17:00)
[2024-02-12] MEDS: PROTONIX 40 MG PO (17:00)
--- NOTE | 2024-02-12 22:54 | PTCARENOTE ---
Patient c/o itchy rash on his upper back that he reports started yesterday; rash appears to be small red papular bumps on his upper back.
[2024-02-12 23:08] VITALS: BP 144/92
[2024-02-13 07:05] VITALS: BP 158/98
[2024-02-13] MEDS: KCL 40 MEQ PO ×2 (08:09→20:48)
[2024-02-13] MEDS: NORVASC 10 MG PO (08:09)
[2024-02-13] MEDS: LEXAPRO 10 MG PO (08:09)
[2024-02-13] MEDS: DECADRON 1 MG PO (08:09)
[2024-02-13] MEDS: KEPPRA 1500 MG PO ×2 (08:09→20:48)
[2024-02-13] MEDS: LIORESAL 10 MG PO ×3 (08:09→21:02)
[2024-02-13] MEDS: ORETIC 25 MG PO (08:10)
[2024-02-13] MEDS: VIMPAT 200 MG PO ×2 (08:10→20:48)
[2024-02-13] MEDS: MAG-TAB SR 84 MG PO (08:10)
[2024-02-13] MEDS: ASPIRIN 325 MG PO (08:10)
--- NOTE | 2024-02-13 11:03 | CM ---
Called to check on Insurance Auth. They do not have any record of auth being initiated. This restarted auth. Pending Reference # is
[id number], Faxed records to [phone]. Call reference # [id number]. Once auth received, patient to be discharged to [facility].
[2024-02-13 13:05] VITALS: BP 146/90
--- NOTE | 2024-02-13 16:02 | CM ---
Addendum entered by Jeannie Slaughter 02/13/24 16:16:
Just spoke with patient to update on discharge plan of care. Patient requesting reconsideration for acute rehab at [facility]. Updated referral forwarded and requested Dr. Myers to re-evaluate as therapy recommendations are consistently recommending
Acute.
Original Note:
Discharge Plan of Care: STR at [facility]. Insurance auth initiated this AM. Pending Reference # is [id number], Faxed records to [phone]. Call reference # [id number].
--- NOTE | 2024-02-13 16:41 | W.PN.HOSP.TC ---
Today's Communication/Plan
-
Continue physical therapy
Continue current antibiotic regimen
[facility] facility
Assessment / Plan
Assessment / Plan
58 man with chronic L sided weakness, now with broken clavicle. He can no longer transfer independently.Attempted to get up to urinate early Tuesday morning (02/03) fell with resultant fx
Impression:
Status post mechanical fall with left clavicular fracture.
Conditions prior to admission:
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
� Chronic left hemiparesis.
Seizure disorder.
Essential hypertension
Plan:
Left clavicular fracture.
Orthopedic input appreciated
Status post ORIF 02/06
DVT prophylaxis with aspirin.
Nonweightbearing left upper extremity with sling nebulization. PT OT
Pain control with oxycodone. Ultram has been discontinued given risk for breakthrough seizure.
Physical therapy/physiatry assessment
Astrocytoma.
Status post resection 2021
Chronic left hemiparesis
Patient will need MRI of the brain for restaging. As per discussion with primary oncologist at [facility], MRI should be done at the primary facility and could be postponed for the next 2 to 3 months after hardware placement.
On dexamethasone
Continue Cardiolite and baclofen.
Seizure disorder
Episode of seizure on night 02/09 - 02/10.
Suspect breakthrough seizure after administration of Ultram which potentially reducing threshold for seizures. Ultram discontinued. Will be replaced by oxycodone for pain control.
Continue Keppra, lacosamide, clobazam
Essential hypertension
Continue lisinopril, amlodipine, HCTZ. Monitor sodium level while on HCTZ
Constipation -continue bowel regimen. Increase MiraLAX to twice daily. Milk of molasses enema ordered.
Full code.
Dispo -medically stable for discharge to SNF today. Informed case management.
Anticipated Discharge: 24 - 48 hours
Subjective/Interval History
-
Date of Service: February 13, 2024
Objective Data
-
Vital Signs:
Vital Signs
Temp Pulse Resp BP Pulse Ox
97.8 F 77 18 146/90 99
02/13/24 13:05 02/13/24 13:05 02/13/24 13:05 02/13/24 13:05 02/13/24 13:05
I&O
02/12/24 02/13/24 02/14/24
06:59 06:59 06:59
Intake Total 1400 / 1400 960 / 960
Output Total 2150 / 2150 2575 / 2575
Balance -750 / -750 -1615 / -1615
Physical Exam
-
General: Well Developed and No Apparent Distress
HEENT: Normocephalic, Atraumatic and Moist Mucous Membranes
Respiratory: Clear to Auscultation
Cardiac: Regular Rhythm and S1/S2; Negative Murmur, Rub or Gallop
GI: Soft, Nontender, Nondistended and Normal Bowel Sounds; Negative Organomegaly
Rectal: Deferred by Provider
Musculoskeletal: No Clubbing, No Cyanosis and No Edema
Skin: Negative Rash
Neuro: Nonfocal/Grossly Intact
--- NOTE | 2024-02-13 16:45 | PTCARENOTE ---
Patient OOB to chair with PT/OT, L sling removed by PT/OT for transfer into chair. This RN confirmed with orthopedic surgery - patient okay to have sling off while in chair. Patient NWB to KYLER, verbalized understanding.
[2024-02-13] MEDS: ZESTRIL 60 MG PO (18:29)
[2024-02-13] MEDS: PROTONIX 40 MG PO (18:29)
[2024-02-13] MEDS: NON-FORMULARY ITEM 2.5 MG PO (18:32)
[2024-02-13] MEDS: COLACE 100 MG PO (18:32)
[2024-02-13] MEDS: SENOKOT-S 1 TABLET PO (20:53)
[2024-02-13 23:27] VITALS: BP 141/94
[2024-02-14 07:05] VITALS: BP 130/80
[2024-02-14] MEDS: ASPIRIN 325 MG PO (08:26)
[2024-02-14] MEDS: LIORESAL 10 MG PO ×3 (08:28→22:39)
[2024-02-14] MEDS: DECADRON 1 MG PO (08:28)
[2024-02-14] MEDS: LEXAPRO 10 MG PO (08:28)
[2024-02-14] MEDS: VIMPAT 200 MG PO ×2 (08:28→19:36)
[2024-02-14] MEDS: KEPPRA 1500 MG PO ×2 (08:28→19:36)
[2024-02-14] MEDS: ORETIC 25 MG PO (08:28)
[2024-02-14] MEDS: MAG-TAB SR 84 MG PO (08:28)
[2024-02-14] MEDS: KCL 40 MEQ PO ×2 (08:28→19:36)
[2024-02-14] MEDS: NORVASC 10 MG PO (08:29)
[2024-02-14] MEDS: TYLENOL 650 MG PO (09:28)
[2024-02-14 14:00] VITALS: BP 147/94
--- NOTE | 2024-02-14 14:13 | W.PN.HOSP.TC ---
Today's Communication/Plan
-
Ongoing disposition efforts acute versus subacute rehab
Continue physical therapy.
Assessment / Plan
Assessment / Plan
58 man with chronic L sided weakness, now with broken clavicle. He can no longer transfer independently.Attempted to get up to urinate early Tuesday morning (02/03) fell with resultant fx
Impression:
Status post mechanical fall with left clavicular fracture.
Conditions prior to admission:
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
� Chronic left hemiparesis.
Seizure disorder.
Essential hypertension
Plan:
Left clavicular fracture.
Orthopedic input appreciated
Status post ORIF 02/06
DVT prophylaxis with aspirin.
Nonweightbearing left upper extremity with sling nebulization. PT OT
Pain control with oxycodone. Ultram has been discontinued given risk for breakthrough seizure.
Physical therapy/physiatry assessment
Astrocytoma.
Status post resection 2021
Chronic left hemiparesis
Patient will need MRI of the brain for restaging. As per discussion with primary oncologist at [facility], MRI should be done at the primary facility and could be postponed for the next 2 to 3 months after hardware placement.
On dexamethasone
Continue Cardiolite and baclofen.
Seizure disorder
Episode of seizure on night 02/09 - 02/10.
Suspect breakthrough seizure after administration of Ultram which potentially reducing threshold for seizures. Ultram discontinued. Will be replaced by oxycodone for pain control.
Continue Keppra, lacosamide, clobazam
Essential hypertension
Continue lisinopril, amlodipine, HCTZ. Monitor sodium level while on HCTZ
Constipation -continue bowel regimen. Increase MiraLAX to twice daily. Milk of molasses enema ordered.
Full code.
Dispo -medically stable for discharge to SNF today. Informed case management.
Anticipated Discharge: 24 - 48 hours
Subjective/Interval History
-
Date of Service: February 14, 2024
Objective Data
-
Vital Signs:
Vital Signs
Temp Pulse Resp BP Pulse Ox
97.5 F 68 16 130/80 95
02/14/24 07:05 02/14/24 07:05 02/14/24 07:05 02/14/24 08:28 02/14/24 10:59
I&O
02/13/24 02/14/24 02/15/24
06:59 06:59 06:59
Intake Total 960 / 960 1500 / 1500
Output Total 2575 / 2575 2049
Balance -1615 / -1615 -550 / -550
Physical Exam
-
General: Well Developed and No Apparent Distress
HEENT: Normocephalic, Atraumatic and Moist Mucous Membranes
Respiratory: Clear to Auscultation
Cardiac: Regular Rhythm and S1/S2; Negative Murmur, Rub or Gallop
GI: Soft, Nontender, Nondistended and Normal Bowel Sounds; Negative Organomegaly
Rectal: Deferred by Provider
Musculoskeletal: No Clubbing, No Cyanosis and No Edema
Skin: Negative Rash
Neuro: Nonfocal/Grossly Intact
[2024-02-14 15:05] VITALS: BP 127/86
--- NOTE | 2024-02-14 15:28 | CM ---
Addendum entered by Jeannie Slaughter 02/14/24 17:13:
[facility] NURSE TO NURSE REPORT # [phone]
FAX # [phone].
Addendum entered by Jeannie Slaughter 02/14/24 17:09:
BC auth for [facility] cancelled. New auth initiated for [facility]. Pending Reference # [id number] with fax # [phone]. Documents faxed.
Original Note:
Insurance auth previously initiated for [facility]. Patient requested reconsideration for acute rehab. [facility] is willing to accept patient. Will need new insurance auth initiated and SNF auth cancelled.
[2024-02-14] MEDS: ZESTRIL 60 MG PO (17:20)
[2024-02-14] MEDS: COLACE 100 MG PO (17:21)
[2024-02-14] MEDS: PROTONIX 40 MG PO (17:21)
[2024-02-14] MEDS: NON-FORMULARY ITEM 5 MG PO (17:24)
[2024-02-14 23:12] VITALS: BP 126/83
--- NOTE | 2024-02-15 03:04 | DOWNTIME ---
There was a [employer] Client Clinical Ob Downtime on 02/15/2024 from 0100 to 02/15/2024 at 0255. Downtime documentation of patient's care, including medication administrations, has been reconciled in the electronic record per guidelines. Refer to the
patient's paper chart under the miscellaneous tab to see printed paper medication records and downtime forms.
[2024-02-15 07:05] VITALS: BP 144/98
[2024-02-15] MEDS: ASPIRIN 325 MG PO (08:16)
[2024-02-15] MEDS: KCL 40 MEQ PO (08:17)
[2024-02-15] MEDS: KEPPRA 1500 MG PO (08:17)
[2024-02-15] MEDS: VIMPAT 200 MG PO (08:17)
[2024-02-15] MEDS: NORVASC 10 MG PO (08:17)
[2024-02-15] MEDS: MAG-TAB SR 84 MG PO (08:17)
[2024-02-15] MEDS: LEXAPRO 10 MG PO (08:18)
[2024-02-15] MEDS: DECADRON 1 MG PO (08:18)
[2024-02-15] MEDS: LIORESAL 10 MG PO ×2 (08:18→17:13)
[2024-02-15] MEDS: ORETIC 25 MG PO (08:18)
--- NOTE | 2024-02-15 11:20 | CM ---
Addendum entered by Bakari Sanches 02/15/24 13:16:
CM spoke to central insurance customer service specialist Lydia [phone] and she confirmed that pt is approved for acute level of rehab at [facility] for 7 initial days from today 02/15/24 till 02/21/24 with NRD 02/22/24. Auth: [id number].
Reviewer Lydia. . fax: [phone]
CM spoke to [place] acute rehab director Norma, auth info provided and she confirmed that pt is accepted for admission today.
[facility] nursing report: [phone]. Please call first special projects coordinator Norma first at [phone]
Discharge instructions fax: [phone]
[facility] to arrange ambulance transportation BLS. [facility]NC completed and left with [facility].
D/C plan: [facility].
Original Note:
CM following re: discharge planning.
Reviewed pt's chart, met with pt. pt is aware he is awaiting for determination regarding approval for an acute rehab level at [facility].
CM left 2 messages to admissions department sales donor recruitment representative Vanessa at [facility] regrading the status of the referral and insurance authorization.
Awaiting for insurance authorization/determination.
D/C plan: [facility].
CM will follow to assist pt with discharge to [facility].
[2024-02-15 15:00] VITALS: BP 113/72
[2024-02-15] MEDS: NON-FORMULARY ITEM 5 MG PO (17:13)
[2024-02-15] MEDS: PROTONIX 40 MG PO (17:13)
[2024-02-15] MEDS: COLACE 100 MG PO (17:13)
[2024-02-15] MEDS: ZESTRIL 60 MG PO (17:13)
== END 2024-02-15 18:45 | DRG 516 ==
LOC: 2 NORTH 08:51
PROVIDERS: Orthopaedic Surgery Hand Surgery; ADMITTING PHYSICIAN Internal Medicine; ATTENDING PHYSICIAN Internal Medicine; CONSULT PHYSICIAN Orthopaedic Surgery; CONSULT PHYSICIAN Physical Medicine & Rehabilitation; EMERGENCY PHYSICIAN Student in an Organized Health Care Education/Training Program; FAMILY PHYSICIAN Physician Assistant Medical
PROC: 0PSB04Z Reposition Left Clavicle with Internal Fixation Device, Open Approach (ICD-10-PCS; 2024-02-07)
DX: S42.032A Displaced fracture of lateral end of left clavicle, initial encounter for closed fracture (principal); G81.94 Hemiplegia, unspecified affecting left nondominant side; W05.0XXA Fall from non-moving wheelchair, initial encounter; G40.909 Epilepsy, unspecified, not intractable, without status epilepticus; I10 Essential (primary) hypertension
CPT/HCPCS: 73000; 73030; 73200; 76000; 80053; 85025; 86850; 86900; 86901; 96374; 96375; 96376; 97164; 97166; 97530; 97535; 99285

== ENCOUNTER → 2024-05-07 14:51 | Outpatient (REF) | payer BC, SELFPAY | LOC: RAD 14:51 | PROVIDERS: ATTENDING PHYSICIAN Internal Medicine Hematology & Oncology; FAMILY PHYSICIAN Family Medicine | DX: R60.9 Edema, unspecified (principal) | CPT/HCPCS: 93971 ==

== ENCOUNTER 2024-06-07 17:36 | Emergency (ER) | payer BC, SELFPAY ==
[2024-06-07] VITALS (8 sets, daily range): BP systolic 114–134; BP diastolic 77–90; BMI 32.7
--- NOTE | 2024-06-07 18:18 | ED.GENMED ---
History of Present Illness
<JOHANA Black - Last Filed: 06/07/24 20:57>
General
Chief Complaint: Seizure
Source: patient
Exam Limitations: none
Time Seen by Provider: 06/07/24 17:59
History of Present Illness
History of Present Illness:
This is a 58 year old male that comes in with c/o left sided weakness. States that he had a seizure this afternoon. States that he normally has some weakness in the left arm and he doesn't move the arm a lot but now he is unable to move his arms,
fingers or leg on the left side. States that this has happened in the past but normally lasted this long. States that he had s slight headache earlier. Denies any fever, chills, chest pain, SOB, abd pain, nausea, vomiting, diarrhea, dizziness,
urinary burning.
Past History
<JOHANA Black - Last Filed: 06/07/24 20:57>
Past History
ED Past Medical History: Cancer (Brain-right cerebral astrocytoma), HTN, Seizures, Psychiatric (Anxiety ) and Other (Brain Tumor, Left sided weakness. PE, )
ED Past Surgical History: Brain and Other (Hernia repair)
Social History
Tobacco: Non-smoker
Alcohol: Daily (Vodka /8 bottle)
Drug: None
Personal:
Living: alf
Employment: Employed
Family History
Family History: Other (reviewed and noncontributory)
Review of Systems
<JOHANA Black - Last Filed: 06/07/24 20:57>
Review of Systems
All Other Systems: ROS reviewed and negative except as documented in HPI and ROS
Constitutional: Reports no symptoms; Denies fever or chills
EENT: Reports no symptoms
Respiratory: Reports no symptoms; Denies cough or trouble breathing
Cardiac: Reports no symptoms; Denies chest pain
ABD/GI: Denies abdominal pain, nausea, vomiting or diarrhea
: Reports no symptoms; Denies dysuria, frequency or urgency
Musculoskeletal: Reports other (Left sided increased weakness)
Skin: Reports no symptoms
Neurological: Reports headache; Denies dizzy
Psychiatric: Reports no symptoms
Phy Exam
<JOHANA Black - Last Filed: 06/07/24 20:57>
General Physical Exam
General Presentation: no apparent distress
General age: appears stated age
General Skin: warm and dry
General Habitus: debilitated
General Mental: alert
General Hydration: appears well hydrated
ENT Exam
ENT Exam: TM's normal, pharynx normal and neck supple
Eye Exam
Eye Exam: PERRL and EOMI
Cardiovascular Exam
Cardiovascular Exam: regular rate/rhythm and normal peripheral pulses
Pulmonary Exam
Pulmonary Exam: lungs clear, no respiratory distress, no rales, chest non tender, no crackles, no rhonchi, no wheezing and no cough
Gastrointestinal Exam
Gastrointestinal Exam: normal bowel sounds, non tender, soft, no organomegaly, no pulsatile mass and non distended
NIH Stroke Score
Level of Consciousness: 0 - Alert
LOC questions: 0-Answers both correctly
LOC Commands: 0-Performs both correctly
Best Gaze: 0-Normal
Visual Melgar: 1=Partial hemianopia (Left sided)
Facial palsy: 0=Normal, symmetrical
Motor - Right Arm: 0=No drift 10 seconds
Motor - Left Arm: 0=No drift 10 seconds (Unable to move the left arm off the bed. No movement of fingers with hand grasp)
Motor - Right Le-No drift 5 seconds
Motor - Left Le-No drift 5 seconds (Unable to lift off bed)
Best Language: 0-No aphasia
Dysarthria: 0-Normal
Extinction and Inattention: 0-No abnormality
Musculoskeletal Exam
Musculoskeletal Exam: edema (+1pitting edema of the lower legs) and other (No hand grasp or push pull on the left side. Right hand grasp and push pull normal)
Skin Exam
Skin Exam: normal color, warm/dry, no rash and no petechia
Psychiatric Exam
Psychiatric Exam: normal mood/affect
Course
<JOHANA Black - Last Filed: 06/07/24 20:57>
Orders/Labs/Results
Orders:
Orders
06/07/24 18:10
Electrocardiogram (*1) Urgent
Reason for Study: TIA/Stroke
CT Head W/o Iv Contrast Urgent
Comment:
Reason For Exam: Left sided weakness
EKG- Treatment ONCE
06/07/24 18:13
Alcohol Urgent
Complete Blood Count/With Diff Urgent
Comprehensive Metabolic Panel Urgent
Prothrombin Time Urgent
Troponin I Urgent
06/07/24 18:31
Lacosamide [Vimpat] 200 mg PO NOW STA
Levetiracetam [Keppra] 1,500 mg PO NOW STA
Lisinopril [Zestril] 60 mg PO NOW STA
06/07/24 19:21
Lorazepam [Ativan] 2 mg .ROUTE .STK-MED ONE
Lorazepam [Ativan] 2 mg IV NOW STA
06/07/24 20:16
Potassium Chloride [KCl] 20 meq 0.9% Sodium Chloride 150 ml [Nss] 150 ml IV NOW
06/07/24 20:51
Urinalysis Reflex To Culture Urgent
Abnormal Lab Results
06/07/24
18:13
RBC 3.93 L 10^6/uL
(4.70-6.10)
MCV 101.3 H fL
(80.0-94.0)
MCH 36.1 H pg
(27.0-31.0)
Abs Immat Gran (auto) 0.1 H 10^3/uL
(0-0.05)
Absolute Lymphs (auto) 0.5 L 10^3/uL
(1.2-3.4)
Immature Gran % 1.0 H %
(0-0.5)
Lymphocytes % 10.9 L %
(20.5-51.1)
Monocytes % 12.1 H %
(1.7-9.3)
Potassium 3.4 L mmol/L
(3.5-5.1)
Glucose 104 H mg/dl
(70-99)
06/07/24 18:13
06/07/24 18:13
Glucose nonfasting. Potassium very slightly low. PT 13.1 with INR 0.94, Troponin <0.012, Alcohol negative.
Vital Signs
Initial and Last Documented VS:
Initial Vital Signs
Pulse Ox
94
06/07/24 17:47
Last Documented Vital Signs
Temp Pulse Resp BP Pulse Ox
97.6 F 74 18 128/82 93
06/07/24 17:51 06/07/24 20:00 06/07/24 17:51 06/07/24 20:00 06/07/24 20:00
<Omega Paez, DO - Last Filed: 06/07/24 19:26>
Orders/Labs/Results
Orders:
Orders
06/07/24 18:10
Electrocardiogram (*1) Urgent
Reason for Study: TIA/Stroke
CT Head W/o Iv Contrast Urgent
Comment:
Reason For Exam: Left sided weakness
EKG- Treatment ONCE
06/07/24 18:13
Alcohol Urgent
Complete Blood Count/With Diff Urgent
Comprehensive Metabolic Panel Urgent
Prothrombin Time Urgent
Troponin I Urgent
06/07/24 18:31
Lacosamide [Vimpat] 200 mg PO NOW STA
Levetiracetam [Keppra] 1,500 mg PO NOW STA
Lisinopril [Zestril] 60 mg PO NOW STA
06/07/24 19:21
Lorazepam [Ativan] 2 mg .ROUTE .STK-MED ONE
Lorazepam [Ativan] 2 mg IV NOW STA
06/07/24 20:16
Potassium Chloride [KCl] 20 meq 0.9% Sodium Chloride 150 ml [Nss] 150 ml IV NOW
06/07/24 20:51
Urinalysis Reflex To Culture Urgent
Abnormal Lab Results
06/07/24
18:13
RBC 3.93 L 10^6/uL
(4.70-6.10)
MCV 101.3 H fL
(80.0-94.0)
MCH 36.1 H pg
(27.0-31.0)
Abs Immat Gran (auto) 0.1 H 10^3/uL
(0-0.05)
Absolute Lymphs (auto) 0.5 L 10^3/uL
(1.2-3.4)
Immature Gran % 1.0 H %
(0-0.5)
Lymphocytes % 10.9 L %
(20.5-51.1)
Monocytes % 12.1 H %
(1.7-9.3)
Potassium 3.4 L mmol/L
(3.5-5.1)
Glucose 104 H mg/dl
(70-99)
06/07/24 18:13
06/07/24 18:13
Vital Signs
Initial and Last Documented VS:
Initial Vital Signs
Pulse Ox
94
06/07/24 17:47
Last Documented Vital Signs
Temp Pulse Resp BP Pulse Ox
97.6 F 74 18 128/82 93
06/07/24 17:51 06/07/24 20:00 06/07/24 17:51 06/07/24 20:00 06/07/24 20:00
<JOHANA Black - Last Filed: 06/07/24 20:57>
MDM/Problems Addressed
Differential Diagnosis Includes:
Valerio's Paralysis, CVA,
MDM/Problems Addressed:
This is a 58 year old male that comes in with c/o increased left side weakness. States that today he had a seizure in the afternoon and know he is unable to move the left arm or leg. States that this has happened before but never lasted this long.
Will check labs. CT head. and given patient his evening medication use for Seizure and BP control.
Patient seen by Dr. Paez as he was called in to the room as patient was Seizing. Patient was given Ativan 2mg IV. Will admit patient. Hospitalist notified.
Patient was seen by Dr. Cotto and patient told her that he wants to go to the [facility] as his Oncologist is there. Will attempt transfer.
Spoke with Dr. Cheney and they will except patient. Will transfer to [place]
Chronic conditions affecting care:
left side weakness from brain tumor
Acute Exacerbation and/or Progression of Chronic Illness:
Chronic left sided weakness,
<JOHANA Black - Last Filed: 06/07/24 20:57>
*Radiology
Radiology exam reviewed: radiology read reviewed (CT head-Prior right frontal parietal craniotomy is again seen with adjacent nceophalomalacia, predominantly stable. some accompanying tiny likely dystrophic calcifications in the area of
encephalomalacia have slightly progressed. Small lesion with accompanying calcifications cannot be excluded on ) and all reviewed NAD by ED Provider (CT cont- the bases of this study. This could be further evaluated with Mri without and with
Contrast. NO findings to suggest acute intracranial infarction or hemorrhage. )
*Pulse Oximetry
Patient hypoxic: no
*EKG
Interpreted by ED Provider?: Yes
Heart Rate: 71
Rate: normal
Rhythm: sinus
Blandford: normal axis
Interval: normal interval
QRS Pattern: normal QRS
Ischemia: no ischemia
*Batter Mixer Interpretation
Rate: normal
Heart Rate: 72
Rhythm: sinus
*Critical Care Note
Total Time (30-74mins, 75-104mins- exclusive of procedures): Not Applicable
ED Attending Note
<JOHANA Black - Last Filed: 06/07/24 20:57>
-
Portions of this chart may have been created with voice recognition software.� Occasional wrong word or��sound alike� substitutions may have occurred due to the inherent limitations of voice recognition software.
<Omega Paez DO - Last Filed: 06/07/24 19:26>
ED Attending Note
Patient seen and examined by attending physician: Yes
I performed the substantive portion of visit, reviewed & personally made and approve the management plan that is documented in note by myself or JOSUÉ.: Yes
ED Attending Note:
Seen with NURSE SEXUAL ASSAULT examined independently history of brain tumor seizure disorder chronic left-sided leg weakness had a prolonged focal left arm seizure today with prolonged weakness, history of Valerio's paralysis, followed at [facility]
neurology, I was called emergently he had another focal seizure of his left arm (he recognized me remembered my 's name and that I had 3 children, he used to live on my block,) CT head pending, will give lorazepam,
Discharge Plan
Departure
Patient Disposition: Acute Care Hospital
Date of Disposition: 06/07/24
Time of Disposition: 19:34
Presentation/result/management discussed w/ accepting MD/DO: Hospitalist
Patient with high blood pressure during this ER visit?: No
Condition: Good
Covid-19: Not Applicable
Discharge Problem:
Seizure disorder, Left-sided weakness
Prescriptions:
No Action
escitalopram oxalate 10 MG tablet
10 mg PO DAILY
pantoprazole 40 mg tablet,delayed release (DR/EC)
40 mg PO QPM
cabergoline 0.5 mg tablet
0.5 mg PO SUTH
levetiracetam 750 mg tablet
1,500 mg PO BID
amlodipine 10 mg tablet
10 mg PO DAILY Qty: 30 0RF
potassium chloride 20 mEq tablet,ER particles/crystals
40 meq PO BID
baclofen 10 mg tablet
15 mg PO TID
docusate sodium 100 mg Capsule
100 mg PO QPM
hydrochlorothiazide 25 mg tablet
25 mg PO DAILY
clobazam 2.5 mg/mL suspension
7.5 mg PO HS
aspirin 325 mg Tablet
325 mg PO DAILY Qty: 30 0RF
sennosides [senna] 8.6 mg Tablet
17.2 mg PO HSPRN PRN (Reason: constipation)
acetaminophen [8 Hour Pain Reliever] 650 mg tablet extended release
1,300 mg PO Q8HPRN PRN (Reason: mild pain)
dexamethasone 1 mg tablet
1 mg PO DAILY
lisinopril 30 mg tablet
60 mg PO QPM
metoprolol succinate 25 mg tablet extended release 24 hr
25 mg PO DAILY
magnesium L-lactate 84 mg tablet extended release
84 mg PO DAILY
polyethylene glycol 3350 [Gavilax] 17 gram/dose powder
17 g PO DAILY
lacosamide 200 mg Tablet
200 mg PO BID Qty: 60 0RF
Patient Comments:
02/04/2024: last filled 01/30/24, 60 tabs for 30 days from [facility]
Hospital Transfer
Other hospital: [place]
I certify that the patient requires transfer: Yes
Discussed case with accepting physician: Dr. Cheney
Reason for transfer: higher level of care, specialties available and continuity of care PCP
Interventions
Interventions:
*Risk Screen - Suicide Last Done: 06/07/24 17:40
*General Assessment Last Done: 06/07/24 17:40
*Neglect/Abuse Screening Last Done: 06/07/24 18:11
*ED COVID-19 Vaccine History Last Done: 06/07/24 17:40
ED- Cardiac Assessment Last Done: 06/07/24 17:40
ED- Neurological Assessment Last Done: 06/07/24 17:40
ED- Pulmonary Assessment Last Done: 06/07/24 17:40
Discharge Date and Time
Print Language: [place]
[2024-06-07 18:36] LABS: % Basophils 0.6 % (0-2); % Eosinophils 0.8 % (0-6); % Lymphocytes 10.9 % (20.5-51.1); % Monocytes 12.1 % (1.7-9.3); % Neutrophils 74.6 % (42.2-75.2); Absolute Immature Granulocytes 0.1 10^3/uL (0-0.05); Absolute Lymphocytes 0.5 10^3/uL (1.2-3.4); Absolute Monocytes 0.6 10^3/uL (0.1-0.6); Absolute Neutrophils 3.7 10^3/uL (1.4-6.5); Hematocrit 39.8 % (39.0-52.0); Hemoglobin 14.2 g/dL (13.0-18.0); Mean Corp Hgb Conc. 35.7 g/dL (33.0-37.0); Mean Corpuscular Hgb 36.1 pg (27.0-31.0); Mean Corpuscular Volume 101.3 fL (80.0-94.0); Mean Platelet Volume 9.2 fL (7.4-10.4); Nucleated Red Blood Cells % 0 % (-); Platelet Count 168 10^3/uL (130-400); Red Blood Cell Count 3.93 10^6/uL (4.70-6.10); Red Cell Dist. Width 13.7 % (11.5-14.5)
[2024-06-07 18:39] LABS: ALT (SGPT) 43 U/L (0-50); AST (SGOT) 46 U/L (17-59); Albumin 4.2 g/dl (3.5-5.0); Alkaline Phosphatase 49 U/L (38-126); Blood Urea Nitrogen 16 mg/dl (9-20); Calcium 9.5 mg/dl (8.4-10.2); Carbon Dioxide 28 mmol/L (22-30); Chloride 101 mmol/L (98-107); Estimated Creatinine Clearance 123 ml/min; Glucose 104 mg/dl (70-99); INR 0.94; PT 13.1 Sec (11.4-14.6); Potassium 3.4 mmol/L (3.5-5.1); Sodium 140 mmol/L (135-145); Total Bilirubin 0.5 mg/dl (0.2-1.3); Total Protein 6.5 g/dl (6.3-8.2); eGFR > 60.00
[2024-06-07 18:40] LABS: Alcohol None Detected
[2024-06-07] MEDS: KEPPRA 1500 MG PO (18:45)
[2024-06-07] MEDS: VIMPAT 200 MG PO (18:45)
[2024-06-07] MEDS: ZESTRIL 60 MG PO (18:46)
[2024-06-07 18:51] LABS: Troponin I < 0.012 ng/ml
[2024-06-07] MEDS: ATIVAN 2 MG IV (19:23)
--- NOTE | 2024-06-07 19:45 | HPS.HSE ---
Family Physician
-
Family Physician:
Chief Complaint
-
left-sided weakness post seizure
History of Present Illness
Mr. 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 He has frequent mini seizures which consist of involuntary finger twitching. Today he had full arm and leg shaking x 4-5 minutes followed by increased weakness with
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 He is wheelchair bound at baseline.
In the ER patient had re-occurrence of focal seizure and was given CUSTOMS COMPLIANCE MANAGER Lamotrigine and Keppra as well as Ativan 2mg IV x 1.
No fevers/chills. No chest pain or shortness of breath. No nausea/vomiting/abdominal pain.
Medical History
Past Medical History
Past Medical History: Reports Other
Additional Past Medical History:
astrocytoma status post resection August 2021 with resulting weakness left arm,
essential HTN
Seizure d/o
)
Past Surgical History: Reports Other
Additional Past Surgical History:
see above
Social History
Tobacco: Non-smoker
Alcohol: Occasional
Drug: None
Personal:
Living: Alone
Employment: Employed
Family History
Family History: Not pertinent
Allergies / Home Medications
Allergies reflects when Allergies were last updated in [employer].
Home Medications with original date entered in [employer]
Allergy/Medication List:
Allergies
Allergy/AdvReac Type Severity Reaction Status Date / Time
oxycodone [From Percocet] Allergy Itching/MATT Verified 11/02/23 17:04
SEA
Home Medications
escitalopram oxalate 10 mg tablet 10 mg PO DAILY Mental Health/Anxiety 04/06/17
cabergoline 0.5 mg tablet 0.5 mg PO SUTH Endocrine disorder 05/30/23
pantoprazole 40 mg tablet,delayed release 40 mg PO QPM Gastrointestinal Issue 05/30/23
lacosamide 200 mg tablet 200 mg PO BID #60 tabs 06/15/23
levetiracetam 750 mg tablet 1,500 mg PO BID SEIURE 10/06/23
amlodipine 10 mg tablet 10 mg PO DAILY #30 tabs 10/08/23
baclofen 10 mg tablet 15 mg PO TID Muscle Spasms 02/04/24
clobazam 2.5 mg/mL oral suspension 7.5 mg PO HS Seizures 02/04/24
docusate sodium 100 mg capsule 100 mg PO QPM STOOL SOFTENER 02/04/24
hydrochlorothiazide 25 mg tablet 25 mg PO DAILY Fluid Retention/Swelling 02/04/24
potassium chloride 20 mEq tablet,extended release(part/cryst) 40 meq PO BID Supplement 02/04/24
aspirin 325 mg tablet 325 mg PO DAILY #30 tabs 02/10/24
acetaminophen 650 mg tablet,extended release (8 Hour Pain Reliever) 1,300 mg PO Q8HPRN PRN mild pain 06/07/24
dexamethasone 1 mg tablet 1 mg PO DAILY 06/07/24
lisinopril 30 mg tablet 60 mg PO QPM 06/07/24
magnesium L-lactate 84 mg tablet,extended release 84 mg PO DAILY 06/07/24
metoprolol succinate 25 mg tablet,extended release 24 hr 25 mg PO DAILY 06/07/24
polyethylene glycol 3350 17 gram/dose oral powder (Gavilax) 17 g PO DAILY 06/07/24
sennosides 8.6 mg tablet (senna) 17.2 mg PO HSPRN PRN constipation 06/07/24
Review of Systems
-
History Source: Patient
A 12 point ROS was completed and negative except as noted: Yes
Physical Exam
Vital Signs
Vital Signs
Temp Pulse Resp BP Pulse Ox
97.6 F 76 18 134/81 93
06/07/24 17:51 06/07/24 19:30 06/07/24 17:51 06/07/24 19:28 06/07/24 19:30
Physical Exam
General: No Apparent Distress
HEENT: PERRLA
Respiratory: Clear; No Wheezes
Cardiac: S1/S2 and Regular Rhythm
GI: Soft and Non Tender
Musculoskeletal: No Edema
Skin: Warm and Dry; No Rash
Neuro: Other (left arm and leg weakness; inability to move left fingers )
Psych: Calm
Laboratory Results
-
06/07/24 18:13
06/07/24 18:13
Laboratory Results
PT 13.1 Sec (11.4-14.6) 06/07/24 18:13
INR 0.94 06/07/24 18:13
Total Bilirubin 0.5 mg/dl (0.2-1.3) 06/07/24 18:13
AST 46 U/L (17-59) 06/07/24 18:13
ALT 43 U/L (0-50) 06/07/24 18:13
Alkaline Phosphatase 49 U/L (38-126) 06/07/24 18:13
Troponin I < 0.012 ng/ml 06/07/24 18:13
Data Reviewed
-
Diagnostic Radiology: Report Reviewed by me
Lab Data: Labs Reviewed by me
Impression/Plan
-
Mr. Eliu Nino is a 58 yo man with hx astrocytoma status post resection August 2021 with resulting weakness left arm, seizure disorder, essential hypertension presents to the ER with worsening left-sided weakness extending to fingers and leg
following a seizure this afternoon.
Triage VS: T 97.6, P 72, RR 18, BP 117/90, SpO2 95%
LABS: WBC 5, Hg 14.2, PLT 168, Na 140, K+ 3.4, CO2 28, BUN 16, cr 0.8, Glucose 104, liver enzymes WNL, Trop < 0.012
CT Head
IMPRESSION:
Prior right frontal parietal craniotomy is again seen with adjacent encephalomalacia, predominantly stable. Some accompanying tiny likely dystrophic calcifications in the area of encephalomalacia have slightly progressed. Small lesion with
accompanying calcifications cannot be excluded on the basis of this study. This could be further evaluated with MRI without and with contrast.
No finding to suggest acute intracranial infarction or hemorrhage.
MAR: Lorazepam 2mg IV x 1, Lacosamide 200mg, Keppra 1500mg, Lisinopril 60mg
Seizure
Post-Ictal Weakness
Seizure Disorder
-patient hopes to go to [place] where his neurosurgeon and Oncology team are. He is due for an MRI tomorrow
-ER team to try to transfer
-case discussed with Dr. Rizvi who agrees with transfer as there is need for more aggressive and specialized therapies
-if no bed tonight, will continue home regimen and place formal consult for neurology here while awaiting transfer
-seizure precautions
Hx Astrocytoma status post resection August 2021
-continue CUSTOMS COMPLIANCE MANAGER Decadron
-continue Cardiolite and Baclofen
Essential Hypertension
-continue CUSTOMS COMPLIANCE MANAGER regimen: Lisinopril, Metoprolol, HCTZ, Amlodipine
[2024-06-08] VITALS: BP 127/84
[2024-06-08] MEDS: TYLENOL 1000 MG PO ×2 (00:23→05:46)
[2024-06-08 01:00] VITALS: BP 113/77
[2024-06-08 02:00] VITALS: BP 111/82
[2024-06-08 03:00] VITALS: BP 111/86
[2024-06-08 04:00] VITALS: BP 153/81
[2024-06-08 05:00] VITALS: BP 157/98
[2024-06-08 06:25] LABS: Urine Albumin Negative (Neg - Trace); Urine Bilirubin Negative (Negative); Urine Character Slightly Cloudy (Clear); Urine Color Yellow; Urine Glucose Negative (Negative); Urine Ketone Negative (Negative); Urine Leukocyte Negative (Negative); Urine Nitrite Negative (Negative); Urine Occult Blood Negative (Negative); Urine Urobilinogen Negative (Neg - 1+)
== END 2024-06-08 06:40 | disposition short-term general hospital (02) ==
LOC: EMR 17:36
PROVIDERS: Clinical Nurse Specialist Family Health; EMERGENCY PHYSICIAN Emergency Medicine; FAMILY PHYSICIAN Family Medicine
DX: G40.909 Epilepsy, unspecified, not intractable, without status epilepticus (principal); R53.1 Weakness; I10 Essential (primary) hypertension; F41.9 Anxiety disorder, unspecified; Z79.52 Long term (current) use of systemic steroids; Z79.899 Other long term (current) drug therapy; Z85.841 Personal history of malignant neoplasm of brain; Z88.5 Allergy status to narcotic agent; Z99.3 Dependence on wheelchair
CPT/HCPCS: 99284; 96374; 70450; 80053; 81003; 82077; 84484; 85025; 85610; 93005